=== PATIENT | female | born 1985 | race Caucasian/White ===

== ENCOUNTER 2016-05-26 23:16 | Emergency (ER) | payer OTHER ==
[2016-05-26 23:49] VITALS: RESP 16
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
[2016-05-27] MEDS ORDERED: KETOROLAC 60 MG/2 ML VIAL IM STA (01:36)
[2016-05-27] MEDS ORDERED: MORPHINE SULFATE 4 MG/ML SYRINGE IVP STA (02:00)
[2016-05-27 02:01] VITALS: BP 111/59; PULSE 88; TEMP 98.9
== END 2016-05-27 02:50 | disposition home or self-care (01) ==
LOC: EC 23:16
DX: S06.2X0A Diffuse traumatic brain injury without loss of consciousness, initial encounter (principal); S30.0XXA Contusion of lower back and pelvis, initial encounter; S00.12XA Contusion of left eyelid and periocular area, initial encounter; D16.12 Benign neoplasm of short bones of left upper limb; F17.200 Nicotine dependence, unspecified, uncomplicated; Y04.2XXA Assault by strike against or bumped into by another person, initial encounter; Z79.899 Other long term (current) drug therapy
CPT/HCPCS: 99284; 96374; 72100; 73110; 72125; 70486; 70450; J2270

== ENCOUNTER 2018-01-31 22:20 | Emergency (ER) | payer OTHER ==
[2018-01-31] MEDS ORDERED: ORPHENADRINE 30 MG/ML 2 ML VIAL IM STA (22:52)
[2018-01-31] MEDS ORDERED: KETOROLAC 60 MG/2 ML VIAL IM STA (22:52)
--- NOTE | 2018-01-31 23:36 | ED ---
Fall HPI - General Chief Complaint: Fall Stated Complaint: Back pain-tripped over dog Time Seen by Provider: 01/31/18 22:27 Source: patient, RN notes reviewed, old records reviewed Mode of arrival: ambulatory - History of Present Illness Initial Comments: Patient is a 33 year old female and she states that she was walking her dog this morning around 9 am when she tripped over the dog falling onto her back. Patient states that she had increased pain in her lower back throughout the day and has a hx of a spinal fusion. She denies UTI symptoms. She reports that she has worse pain with movement. She denies adominal pain. - Related Data Previous Rx's Medication Instructions Recorded Cyclobenzaprine [Flexeril] 10 mg PO TID #15 tab 02/01/18 Dexamethasone 0.75 mg PO DAILY #12 tab 02/01/18 Nitrofurantoin Monohyd/M-Cryst 100 mg PO Q12HR #14 cap 02/01/18 [Macrobid] traMADol HCl [Ultram] 50 mg PO Q4HR PRN 3 Days #12 tab 02/01/18 Allergies Allergy/AdvReac Type Severity Reaction Status Date / Time No Known Allergies Allergy Verified 01/31/18 22:41 Review of Systems ROS Statement: Those systems with pertinent positive or pertinent negative responses have been documented in the HPI. ROS Other: All systems not noted in ROS Statement are negative. Past Medical History Additional Past Medical History / Comment(s): endometriosis History of Any Multi-Drug Resistant Organisms: None Reported Past Surgical History: Back Surgery, Hysterectomy Additional Past Surgical History / Comment(s): spinal fusion Past Psychological History: Depression Smoking Status: Current every day smoker Past Alcohol Use History: None Reported Past Drug Use History: Marijuana General Exam - General Exam Comments Initial Comments: Well appearing 33 year old female, no significant distress. Limitations: no limitations General appearance: alert, in no apparent distress Head exam: Present: atraumatic, normocephalic, normal inspection Eye exam: Present: normal appearance, PERRL, EOMI. Absent: scleral icterus, conjunctival injection, periorbital swelling Neck exam: Present: normal inspection. Absent: tenderness, meningismus, lymphadenopathy Respiratory exam: Present: normal lung sounds bilaterally. Absent: respiratory distress, wheezes, rales, rhonchi, stridor Cardiovascular Exam: Present: regular rate, normal rhythm, normal heart sounds. Absent: systolic murmur, diastolic murmur, rubs, gallop, clicks GI/Abdominal exam: Present: soft, tenderness (Lumbar spinal and paraspinal tenderness, and spasm. ), normal bowel sounds. Absent: distended, guarding, rebound, rigid Extremities exam: Present: normal inspection, full ROM, normal capillary refill. Absent: tenderness, pedal edema, joint swelling, calf tenderness Back exam: Present: normal inspection Neurological exam: Present: alert, oriented X3, CN II-XII intact Psychiatric exam: Present: normal affect, normal mood Course Vital Signs 01/31/18 02/01/18 22:23 01:08 Temperature 97.9 F 98.1 F Pulse Rate 110 H 93 Respiratory 19 18 Rate Blood Pressure 153/92 106/59 O2 Sat by Pulse 100 98 Oximetry Medical Decision Making - Medical Decision Making 33 year old female with history of spinal fusino presents ith mechanical lowe back pain after a fall. She has normal sensation adn rOM of lower extremities. Normal cap refill. She has no significant deformities or step off to palpation of lumbar spine. Xray was completed and negatie for acute fracture. We did check uA, and she is nitrate positive. Will start on antibiotic for UTI. Given IM infection for pain. Will DC patient with rx of steriod, musle relaxer and pain medication for acute mechanical [place] back pain. Discussed close follow up with PCP and return parameters discussed . - Lab Data Lab Results 01/31/18 Range/Units 23:57 Urine Color Yellow Urine Appearance Cloudy H (Clear) Urine pH 5.5 (5.0-8.0) Ur Specific [place] 1.011 (1.001-1.035) Urine Protein Negative (Negative) Urine Glucose (UA) Negative (Negative) Urine Ketones Negative (Negative) Urine Blood Negative (Negative) Urine Nitrite Positive H (Negative) Urine Bilirubin Negative (Negative) Urine Urobilinogen <2.0 (<2.0) mg/dL Ur Leukocyte Esterase Small H (Negative) Urine RBC 2 (0-5) /hpf Urine WBC 8 H (0-5) /hpf Ur Squamous Epith Cells 4 (0-4) /hpf Urine Bacteria Many H (None) /hpf Urine Mucus Rare H (None) /hpf - Radiology Data Radiology results: report reviewed Previous surgery. No fracture. Mild low scoliosis. Disposition Clinical Impression: Lower back pain, UTI (urinary tract infection), Scoliosis Disposition: HOME SELF-CARE Condition: Good Additional Instructions: Patient has follow-up with primary care physician. He denies any back. Return to emergency department if any alarming signs or symptoms occur. Prescriptions: Cyclobenzaprine [Flexeril] 10 mg PO TID #15 tab Dexamethasone 0.75 mg PO DAILY #12 tab Nitrofurantoin Monohyd/M-Cryst [Macrobid] 100 mg PO Q12HR #14 cap traMADol HCl [Ultram] 50 mg PO Q4HR PRN 3 Days #12 tab PRN Reason: Pain Is patient prescribed a controlled substance at d/c from ED?: No Referrals: None,Stated [Primary Care Provider] - 1-2 days Leticia Harding MD [STAFF PHYSICIAN] - 1-2 days Ramiro Seaman DO [Doctor of Osteopathic Medicine] - 1-2 days Time of Disposition: 00:44
[2018-02-01] MEDS: Acetaminophen-Codeine 300-30mg TAB PO STA ×2 (00:02→00:05)
[2018-02-01] MEDS ORDERED: Acetaminophen-Codeine 300-30mg TAB PO STA (00:06)
--- NOTE | 2018-02-01 00:07 | XR ---
EXAMINATION TYPE: XR lumbar spine 2 or 3V DATE OF EXAM: 01/31/2018 COMPARISON: NONE HISTORY: Back pain TECHNIQUE: 3 views FINDINGS: There is mild levoscoliosis. There is a plate with screws fusing anteriorly L5 and S1. The sacroiliac joints are normal. There is no compression fracture. IMPRESSION: Previous surgery. No fracture. Stable mild levoscoliosis.
--- NOTE | 2018-02-01 00:08 | XR ---
EXAMINATION TYPE: XR thoracic spine 2V DATE OF EXAM: 01/31/2018 COMPARISON: NONE HISTORY: Back pain TECHNIQUE: 3 views FINDINGS: There is a lower thoracic dextroscoliosis and compensatory upper thoracic levoscoliosis. Th ere is no paraspinal mass. Posterior elements are intact. I see no compression fracture. There is no evidence of a bony destructive process. IMPRESSION: Mild scoliotic deformity. No fracture seen.
[2018-02-01 00:33] LABS: Appearance,Urine Cloudy (Clear); Bacteria,Urine Many /hpf; Bilirubin,Urine Negative (Negative); Blood,Urine Negative (Negative); Color,Urine Yellow; Glucose,Urine (UA) Negative (Negative); Ketones,Urine Negative (Negative); Leukocyte Esterase,Urine Small (Negative); Mucus,Urine Rare /hpf; Nitrite,Urine Positive (Negative); PH, Urine 5.5 (5.0-8.0); Protein,Urine Negative (Negative); RBC,Urine 2 /hpf (0-5); Specific Gravity,Urine 1.011 (1.001-1.035); Squamous Epithelial Cell,Urine 4 /hpf (0-4); Urobilinogen,Urine <2.0 mg/dL (<2.0); WBC,Urine 8 /hpf (0-5)
[2018-02-01 01:10] VITALS: BP 106/59; PULSE 93; RESP 18; TEMP 98.1
== END 2018-02-01 01:08 | disposition home or self-care (01) ==
LOC: EC 22:20
DX: M54.5 Low back pain (principal); N39.0 Urinary tract infection, site not specified; M41.9 Scoliosis, unspecified; F17.200 Nicotine dependence, unspecified, uncomplicated; Z98.890 Other specified postprocedural states; Z98.1 Arthrodesis status; Z53.8 Procedure and treatment not carried out for other reasons; W01.0XXA Fall on same level from slipping, tripping and stumbling without subsequent striking against object, initial encounter; Y93.K1 Activity, walking an animal; Y92.89 Other specified places as the place of occurrence of the external cause
CPT/HCPCS: 81001; 72070; 72100; 99284; 96372 ×2; J2360; J1885

== ENCOUNTER 2018-07-25 12:00 | Emergency (ER) | payer OTHER ==
[2018-07-25 12:05] VITALS: BP 157/82; PULSE 100; RESP 20; TEMP 98.3
--- NOTE | 2018-07-25 12:29 | ED ---
General Adult HPI - General Chief complaint: Recheck/Abnormal Lab/Rx Stated complaint: Swollen lymph node Time Seen by Provider: 07/25/18 12:12 Source: patient, RN notes reviewed, old records reviewed Mode of arrival: ambulatory Limitations: no limitations - History of Present Illness Initial comments: This is a 33-year-old female who presents to the emergency department with complaints of left-sided postauricular swelling and pain. Patient admits to having an enlarged lymph node present in the region for the past 2 years. The lymph node will fluctuate in size. Once enlarged it causes the patient a significant amount of pain. States that she previously saw her primary care physician and had blood work completed. They referred her to an ENT doctor. She did not have any imaging performed and she never followed up. For the past 2 days, the lymph node has tripled in size. She has also felt additional palpable lymph nodes in the same area as well as in her anterior cervical region. She normally takes Motrin at home for pain and states she has been taking this with minimal improvement in her symptoms. She admits to left-sided neck pain with palpation. Denies any history of trauma. She denies any recent illnesses. Denies sore throat, ear pain, headaches, neck stiffness, fevers, or nasal drainage. She denies any night sweats, unintentional weight loss, or extreme fatigue. No personal history of cancer. She denies any oral pain or swelling. She has any chest pain or difficulty breathing. No reported nausea or vomiting. - Related Data Home Medications Medication Instructions Recorded Confirmed Black Cohosh 540 mg PO DAILY 07/25/18 07/25/18 Bronkaide 1 tab PO DAILY PRN 07/25/18 07/25/18 Ibuprofen [Motrin Ib] 1,200 - 2,400 mg PO DAILY PRN 07/25/18 07/25/18 Multivitamins, Thera [Multivitamin 1 tab PO DAILY 07/25/18 07/25/18 (formulary)] Junaid's Wort 150 mg PO DAILY 07/25/18 07/25/18 Allergies Allergy/AdvReac Type Severity Reaction Status Date / Time No Known Allergies Allergy Verified 07/25/18 12:10 Patient : No (hyster) Review of Systems ROS Statement: Those systems with pertinent positive or pertinent negative responses have been documented in the HPI. ROS Other: All systems not noted in ROS Statement are negative. Past Medical History Additional Past Medical History / Comment(s): endometriosis History of Any Multi-Drug Resistant Organisms: None Reported Past Surgical History: Back Surgery, Hysterectomy Additional Past Surgical History / Comment(s): spinal fusion Past Psychological History: Depression Smoking Status: Current every day smoker Past Alcohol Use History: None Reported Past Drug Use History: None Reported General Exam Limitations: no limitations General appearance: alert, in no apparent distress Head exam: Present: atraumatic, normocephalic, other (Located posterior to the patient's left ear are 2 palpable nodules that measure approximately 1.0 and 1.5 cm. They are freely mobile and rubbery to palpation. No areas of fluctuance. The overlying skin is not erythematous or puckered. Negative Bearden sign. No tenderness to palpation of the mastoids) Expanded Head exam: Absent: contusion, raccoon eyes, bearden's sign, general tenderness, tenderness of temporal artery, CSF rhinorrhea, CSF otorrhea Eye exam: Present: normal appearance, PERRL, EOMI Pupils: Present: normal accommodation ENT exam: Present: normal exam, normal oropharynx, mucous membranes moist, TM's normal bilaterally, normal external ear exam Neck exam: Present: full ROM, lymphadenopathy, other (There are multiple palpable anterior cervical lymph nodes predominantly on the left that measure less than 1 cm each. No enlargement of the salivary glands.). Absent: tenderness, meningismus, thyromegaly Respiratory exam: Present: normal lung sounds bilaterally. Absent: respiratory distress, wheezes, rales, rhonchi Cardiovascular Exam: Present: regular rate, normal rhythm Neurological exam: Present: alert, oriented X3 Skin exam: Present: warm, dry, intact, normal color. Absent: rash, erythema, vesicles, petechiae, pallor Course Vital Signs 07/25/18 07/25/18 12:02 14:28 Temperature 98.3 F 98.3 F Pulse Rate 100 100 Respiratory 20 20 Rate Blood Pressure 157/82 157/82 O2 Sat by Pulse 100 100 Oximetry Procedures - Procedures Initial comment: Bedside soft tissue ultrasound is performed. The linear probe was utilized and placed over the area of concern in the postauricular area. Imaging reveals 2 enlarged masses/lymph nodes without signs of fluid collection Medical Decision Making - Medical Decision Making The patient was seen by myself in room 16. Physical exam was performed. I did perform a bedside ultrasound of patient's postauricular area which demonstrated two enlarged masses/possible enlarged lymph nodes. There are no cellulitic changes or signs concerning for abscess formation. I did offer laboratory studies as well as a CT of the patient's neck. The patient did agree to laboratory studies however however refused CT imaging. Laboratory studies were performed. The patient was offered Toradol 30 mg IM for pain control. Patient did agree to this. Upon reevaluation by the nurse the patient admits that she is having back pain from sitting in the examination cart and she would like to leave. I did obtain the patient's results and enter the room to provide them to the patient however she had eloped immediately after speaking to the nurse. - Differential Diagnosis Lymphadenopathy, abscess formation, cyst formation - Lab Data Result diagrams: 07/25/18 13:17 07/25/18 13:17 Lab Results 07/25/18 07/25/18 Range/Units 13:17 13:17 WBC 7.9 (3.8-10.6) k/uL RBC 3.76 L (3.80-5.40) m/uL Hgb 11.1 L (11.4-16.0) gm/dL Hct 34.7 (34.0-46.0) % MCV 92.4 (80.0-100.0) fL MCH 29.6 (25.0-35.0) pg MCHC 32.1 (31.0-37.0) g/dL RDW 14.8 (11.5-15.5) % Plt Count 185 (150-450) k/uL Neutrophils % 63 % Lymphocytes % 27 % Monocytes % 5 % Eosinophils % 3 % Basophils % 1 % Neutrophils # 4.9 (1.3-7.7) k/uL Lymphocytes # 2.1 (1.0-4.8) k/uL Monocytes # 0.4 (0-1.0) k/uL Eosinophils # 0.3 (0-0.7) k/uL Basophils # 0.0 (0-0.2) k/uL Sodium 139 (137-145) mmol/L Potassium 4.4 (3.5-5.1) mmol/L Chloride 109 H (98-107) mmol/L Carbon Dioxide 23 (22-30) mmol/L Anion Gap 7 mmol/L BUN 22 H (7-17) mg/dL Creatinine 0.64 (0.52-1.04) mg/dL Est GFR (CKD-EPI)AfAm >90 (>60 ml/min/1.73 sqM) Est GFR (CKD-EPI)NonAf >90 (>60 ml/min/1.73 sqM) Glucose 88 (74-99) mg/dL Calcium 8.9 (8.4-10.2) mg/dL C-Reactive Protein <5.0 (<10.0) mg/L Disposition Clinical Impression: Lymphadenopathy of head and neck region, Lymph node enlargement Narrative: The patient eloped from the emergency department without being discharged by myself Disposition: Left Against Medical Advice Condition: Good Is patient prescribed a controlled substance at d/c from ED?: No Referrals: None,Stated [Primary Care Provider] - 1-2 days Time of Disposition: 02:30
[2018-07-25] MEDS ORDERED: KETOROLAC 60 MG/2 ML VIAL IM STA (12:52)
[2018-07-25 13:41] LABS: Anion Gap 7 mmol/L; Blood Urea Nitrogen 22 mg/dL (7-17); C Reactive Protein <5.0 mg/L (<10.0); Calcium 8.9 mg/dL (8.4-10.2); Carbon Dioxide 23 mmol/L (22-30); Chloride 109 mmol/L (98-107); Glucose 88 mg/dL (74-99); Potassium 4.4 mmol/L (3.5-5.1); Sodium 139 mmol/L (137-145)
[2018-07-25 13:45] LABS: Basophils % (A) 1 %; Eosinophils # (A) 0.3 k/uL (0-0.7); Eosinophils % (A) 3 %; HCT 34.7 % (34.0-46.0); HGB 11.1 gm/dL (11.4-16.0); Lymphocytes # (A) 2.1 k/uL (1.0-4.8); Lymphocytes % (A) 27 %; MCH 29.6 pg (25.0-35.0); MCHC 32.1 g/dL (31.0-37.0); MCV 92.4 fL (80.0-100.0); Mean Platelet Volume 9.1; Monocytes # (A) 0.4 k/uL (0-1.0); Monocytes % (A) 5 %; Neutrophils # (A) 4.9 k/uL (1.3-7.7); Neutrophils % (A) 63 %; Platelet Count 185 k/uL (150-450); RBC 3.76 m/uL (3.80-5.40); RDW 14.8 % (11.5-15.5); WBC 7.9 k/uL (3.8-10.6)
[2018-07-25 15:12] LABS: Erythrocyte Sedimentation Rate 8 mm/hr (0-20)
== END 2018-07-25 14:28 | disposition left against medical advice (07) ==
LOC: EC 12:00
DX: R59.0 Localized enlarged lymph nodes (principal); F17.200 Nicotine dependence, unspecified, uncomplicated; Z79.899 Other long term (current) drug therapy
CPT/HCPCS: 36415; 80048; 85025; 85652; 86140; 96372; 99284

== ENCOUNTER 2021-11-25 07:10 | Inpatient (IN) | payer OTHER ==
[2021-11-25] MEDS ORDERED: SODIUM CHLORIDE 0.9% 1,000 ML IV STA (07:21)
[2021-11-25] MEDS ORDERED: diphenhydrAMINE 50 MG/ML 1 ML VIAL IVP STA (07:22)
[2021-11-25] MEDS ORDERED: ONDANSETRON 4 MG/2 ML VIAL IVP STA (07:22)
[2021-11-25] MEDS ORDERED: KETOROLAC 15 MG/ML 1 ML VIAL IVP STA (07:22)
--- NOTE | 2021-11-25 07:29 | ED ---
General Adult HPI - General Chief complaint: Syncope Stated complaint: syncope Time Seen by Provider: 11/25/21 07:12 Source: patient, EMS, RN notes reviewed, old records reviewed Mode of arrival: EMS Limitations: no limitations - History of Present Illness Initial comments: Patient is a 36-year-old female with past medical history remarkable for chronic cough secondary to tobacco use, back surgery presents to the emergency Department after a near-syncopal episode while at work. This is the second time this week that she has felt like this at work. She states that 2 days ago she felt lightheaded at that time, and sat down. Today she felt the same way, and laying down on the ground. Coworkers thought she passed out but she states that she could still hear and see, but felt extremely weak. They called EMS and was brought here for further evaluation today. Does endorse a 2-3 month history of intermittent right calf swelling which is currently happening today. Denies any shortness of breath, chest pain. Does endorse some nausea but no emesis. Denies diarrhea. Denies any bloody bowel movements. Denies being . Denies any urinary complaints or vaginal discharge or bleeding. Denies any known sick contacts or fevers. Has no other acute complaints at this time. Denies any family medical history of blood clots. Endorses feeling medical history of heart disease in elderly but no early onset.Denies headache. Describes her abdominal pain that she is having as achy located in the right upper quadrant and epigastric region. - Related Data Home Medications Medication Instructions Recorded Confirmed Ibuprofen [Motrin Ib] 800 mg PO DAILY PRN 07/25/18 11/25/21 Multivitamins, Thera [Multivitamin 1 tab PO DAILY 07/25/18 11/25/21 (formulary)] Acetaminophen [Tylenol] 650 mg PO Q6H PRN 11/25/21 11/25/21 Allergies Allergy/AdvReac Type Severity Reaction Status Date / Time No Known Allergies Allergy Verified 11/25/21 08:39 Review of Systems ROS Statement: Those systems with pertinent positive or pertinent negative responses have been documented in the HPI. Review of Systems: CONST: Denies fever EYES: Denies blurry vision ENT: Denies nasal congestion C/V: Denies Chest pain RESP: Denies shortness of breath GI: Endorses abdominal pain. : Denies dysuria SKIN: Denies rash. MSK: Denies joint pain. NEURO: Denies headache ROS Other: All systems not noted in ROS Statement are negative. Past Medical History Additional Past Medical History / Comment(s): endometriosis History of Any Multi-Drug Resistant Organisms: None Reported Past Surgical History: Back Surgery, Hysterectomy Additional Past Surgical History / Comment(s): spinal fusion Past Psychological History: Depression Smoking Status: Current every day smoker Past Alcohol Use History: None Reported Past Drug Use History: None Reported - Past Family History Father Family Medical History: No Reported History Additional Family Medical History / Comment(s): Father is healthy Mother Additional Family Medical History / Comment(s): Endometriosis General Exam - General Exam Comments Initial Comments: General: Appears in no acute distress. HEAD: Normal with no signs of head trauma. EYES: PERRLA, EOMI, conjunctiva normal, no discharge. Pupils are 3 mm and equal bilaterally. ENT: Hearing grossly intact, normal oropharynx. RESPIRATORY: Clear breath sounds bilaterally. No wheezes, rales, or rhonchi. C/V: Regular rate and rhythm. S1 and S2 auscultated, no edema, peripheral pulse s 2+ and intact throughout ABD: Abdomen soft, nondistended. Mild tenderness to palpation in the right upper quadrant and somewhat in the epigastric region. No guarding. No peritoneal signs. No rebound tenderness. EXT: Normal range of motion, no obvious deformity.Mild calf swelling on the right side with no obvious tenderness or pitting edema. SKIN: No rashes or lesions observed on exposed skin. NEURO: Alert and oriented x 4. Cranial nerves II-XII intact. No focal sensory or strength deficits. NIH is 0. GCS 15. Limitations: no limitations Course Vital Signs 11/25/21 11/25/21 11/25/21 07:15 08:00 09:00 Temperature 97.9 F 97.9 F Pulse Rate 81 73 69 Respiratory 18 20 18 Rate Blood Pressure 117/77 105/71 116/71 O2 Sat by Pulse 100 100 99 Oximetry 11/25/21 11/25/21 11/25/21 10:00 12:04 12:15 Temperature 98.9 F 98.8 F Pulse Rate 79 70 70 Respiratory 19 18 16 Rate Blood Pressure 123/67 102/60 112/65 O2 Sat by Pulse 99 100 100 Oximetry 11/25/21 12:45 Temperature 98.4 F Pulse Rate 73 Respiratory 17 Rate Blood Pressure 114/76 O2 Sat by Pulse 100 Oximetry Medical Decision Making - Medical Decision Making Based on the patient's presentation and physical exam, I'm concerned for what seems to be near syncopal episode at work. She also having nausea as well as abdominal pain. We will obtain right upper quadrant ultrasound condition to a right lower extremity duplex treatment swelling in the calf. No skin the patient with an EKG as well as d-dimer in addition to basic labs, urine studies, hCG level. Patient was in agreement with this plan. She'll be symptomatically treated with IV medications and IV fluids. Vital signs are within normal limits at this time. EKG shows no signs of acute ischemia. Gallbladder ultrasound reveals no significant findings. DVT ultrasound of the right lower extremity is negative for DVT. Laboratory studies were remarkable for a microcytic anemia with hemoglobin of 6.0. D-dimer is within normal limits. Urinalysis is a contaminated catch but does show nitrites as well as leukocyte esterase. Culture will be sent. In a box will be held at this time and she is having no urinary symptoms. Covid is negative. Flu is negative. Repeat CBC was sent as the lab was uncertain if it was accurate. Repeat following IV fluids did show a small drop in hemoglobin to 5.6. This is likely secondary to dilutional effect. I discussed with the patient results of her laboratory studies and imaging. I'm concerned for GI bleed and I once again as ked regarding bleeding from her bowels. She states over the last 2-3 weeks she has had a few episodes of intermittent bright red blood per rectum. Denies any dark stools or dark red stools. States she felt was secondary to her constipation. Uncertain when last time this happened. Had a few episodes where there was a lot of blood, but no recent episodes. No history of enteritis. No other significant history. No lower quadrant abdominal pain at any point. I discussed with her her results, and that she requires blood transfusion. Patient will be admitted to the hospital in need of likely colonoscopy. She was in agreement this plan. Rectal exam was performed in the presence of a female staff member. It is unremarkable. No gross blood. Light brown stool. Good rectal tone. Occult blood is negative. At this time vital signs remained within normal limits and stable. I discussed the case with the on-call surgeon as we do not have gastroenterology here. Dr. Schultz did accept the case and requested the patient be admitted to medicine and will be on as a consult for GI bleed workup. I spoke with the patient's admitting physician, Dr. Soto who was in agreement this plan. Veronica cruz was therefore admitted in stable condition. Serial CBCs were ordered. Initially, patient will be transfused 2 units of packed red blood cells. - Lab Data Result diagrams: 11/25/21 08:48 11/25/21 07:30 Lab Results 11/25/21 11/25/21 11/25/21 Range/Units 07:30 07:30 07:30 WBC 5.6 (3.8-10.6) k/uL RBC 3.78 L (3.80-5.40) m/uL Hgb 6.0 L* (11.4-16.0) gm/dL Hct 23.8 L (34.0-46.0) % MCV 63.1 L (80.0-100.0) fL MCH 15.9 L (25.0-35.0) pg MCHC 25.2 L (31.0-37.0) g/dL RDW 17.5 H (11.5-15.5) % Plt Count 264 (150-450) k/uL MPV 8.7 Neutrophils % 73 % Lymphocytes % 16 % Monocytes % 7 % Eosinophils % 2 % Basophils % 2 % Neutrophils # 4.1 (1.3-7.7) k/uL Lymphocytes # 0.9 L (1.0-4.8) k/uL Monocytes # 0.4 (0-1.0) k/uL Eosinophils # 0.1 (0-0.7) k/uL Basophils # 0.1 (0-0.2) k/uL Hypochromasia Marked Anisocytosis Slight Microcytosis Marked PT 10.1 (9.0-12.0) sec INR 0.9 (<1.2) APTT 18.2 L (22.0-30.0) sec D-Dimer 0.56 (<0.60) mg/L FEU Sodium (137-145) mmol/L Potassium (3.5-5.1) mmol/L Chloride (98-107) mmol/L Carbon Dioxide (22-30) mmol/L Anion Gap mmol/L BUN (7-17) mg/dL Creatinine (0.52-1.04) mg/dL Est GFR (CKD-EPI)AfAm (>60 ml/min/1.73 sqM) Est GFR (CKD-EPI)NonAf (>60 ml/min/1.73 sqM) Glucose (74-99) mg/dL POC Glucose (mg/dL) (70-110) mg/dL POC Glu Canine Service Instructor Trainer ID Calcium (8.4-10.2) mg/dL Magnesium (1.6-2.3) mg/dL Total Bilirubin (0.2-1.3) mg/dL AST (14-36) U/L ALT (4-34) U/L Alkaline Phosphatase (38-126) U/L Total Protein (6.3-8.2) g/dL Albumin (3.5-5.0) g/dL HCG, Qual Urine Color Yellow Urine Appearance Cloudy H (Clear) Urine pH 6.0 (5.0-8.0) Ur Specific [place] 1.040 H (1.001-1.035) Urine Protein 1+ H (Negative) Urine Glucose (UA) Negative (Negative) Urine Ketones Negative (Negative) Urine Blood Negative (Negative) Urine Nitrite Positive H (Negative) Urine Bilirubin Negative (Negative) Urine Urobilinogen <2.0 (<2.0) mg/dL Ur Leukocyte Esterase Moderate H (Negative) Urine RBC 2 (0-5) /hpf Urine WBC 12 H (0-5) /hpf Ur Squamous Epith Cells 20 H (0-4) /hpf Urine Bacteria Rare H (None) /hpf Hyaline Casts 7 H (0-2) /lpf Urine Mucus Occasional H (None) /hpf Stool Occult Blood (Negative) Coronavirus (PCR) (Not Detectd) Influenza Type A RNA (Not Detectd) Influenza Type B (PCR) (Not Detectd) Blood Type Blood Type Recheck Bld Type Recheck Status Antibody Screen Crossmatch Spec Expiration Date 11/25/21 11/25/21 11/25/21 Range/Units 07:30 07:30 07:30 WBC (3.8-10.6) k/uL RBC (3.80-5.40) m/uL Hgb (11.4-16.0) gm/dL Hct (34.0-46.0) % MCV (80.0-100.0) fL MCH (25.0-35.0) pg MCHC (31.0-37.0) g/dL RDW (11.5-15.5) % Plt Count (150-450) k/uL MPV Neutrophils % % Lymphocytes % % Monocytes % % Eosinophils % % Basophils % % Neutrophils # (1.3-7.7) k/uL Lymphocytes # (1.0-4.8) k/uL Monocytes # (0-1.0) k/uL Eosinophils # (0-0.7) k/uL Basophils # (0-0.2) k/uL Hypochromasia Anisocytosis Microcytosis PT (9.0-12.0) sec INR (<1.2) APTT (22.0-30.0) sec D-Dimer (<0.60) mg/L FEU Sodium 139 (137-145) mmol/L Potassium 4.3 (3.5-5.1) mmol/L Chloride 106 (98-107) mmol/L Carbon Dioxide 22 (22-30) mmol/L Anion Gap 11 mmol/L BUN 21 H (7-17) mg/dL Creatinine 0.79 (0.52-1.04) mg/dL Est GFR (CKD-EPI)AfAm >90 (>60 ml/min/1.73 sqM) Est GFR (CKD-EPI)NonAf >90 (>60 ml/min/1.73 sqM) Glucose 93 (74-99) mg/dL POC Glucose (mg/dL) (70-110) mg/dL POC Glu Canine Service Instructor Trainer ID Calcium 8.9 (8.4-10.2) mg/dL Magnesium 1.9 (1.6-2.3) mg/dL Total Bilirubin 0.2 (0.2-1.3) mg/dL AST 17 (14-36) U/L ALT 11 (4-34) U/L Alkaline Phosphatase 58 (38-126) U/L Total Protein 7.3 (6.3-8.2) g/dL Albumin 4.6 (3.5-5.0) g/dL HCG, Qual Not Detected Urine Color Urine Appearance (Clear) Urine pH (5.0-8.0) Ur Specific [place] (1.001-1.035) Urine Protein (Negative) Urine Glucose (UA) (Negative) Urine Ketones (Negative) Urine Blood (Negative) Urine Nitrite (Negative) Urine Bilirubin (Negative) Urine Urobilinogen (<2.0) mg/dL Ur Leukocyte Esterase (Negative) Urine RBC (0-5) /hpf Urine WBC (0-5) /hpf Ur Squamous Epith Cells (0-4) /hpf Urine Bacteria (None) /hpf Hyaline Casts (0-2) /lpf Urine Mucus (None) /hpf Stool Occult Blood (Negative) Coronavirus (PCR) Not Detected (Not Detectd) Influenza Type A RNA Not Detected (Not Detectd) Influenza Type B (PCR) Not Detected (Not Detectd) Blood Type Blood Type Recheck Bld Type Recheck Status Antibody Screen Crossmatch Spec Expiration Date 11/25/21 11/25/21 11/25/21 Range/Units 07:47 08:48 09:37 WBC 6.6 (3.8-10.6) k/uL RBC 3.40 L (3.80-5.40) m/uL Hgb 5.6 L* (11.4-16.0) gm/dL Hct 21.7 L (34.0-46.0) % MCV 63.9 L (80.0-100.0) fL MCH 16.4 L (25.0-35.0) pg MCHC 25.7 L (31.0-37.0) g/dL RDW 17.6 H (11.5-15.5) % Plt Count 240 (150-450) k/uL MPV 9.6 Neutrophils % % Lymphocytes % % Monocytes % % Eosinophils % % Basophils % % Neutrophils # (1.3-7.7) k/uL Lymphocytes # (1.0-4.8) k/uL Monocytes # (0-1.0) k/uL Eosinophils # (0-0.7) k/uL Basophils # (0-0.2) k/uL Hypochromasia Marked Anisocytosis Slight Microcytosis Marked PT (9.0-12.0) sec INR (<1.2) APTT (22.0-30.0) sec D-Dimer (<0.60) mg/L FEU Sodium (137-145) mmol/L Potassium (3.5-5.1) mmol/L Chloride (98-107) mmol/L Carbon Dioxide (22-30) mmol/L Anion Gap mmol/L BUN (7-17) mg/dL Creatinine (0.52-1.04) mg/dL Est GFR (CKD-EPI)AfAm (>60 ml/min/1.73 sqM) Est GFR (CKD-EPI)NonAf (>60 ml/min/1.73 sqM) Glucose (74-99) mg/dL POC Glucose (mg/dL) 100 (70-110) mg/dL POC Glu Canine Service Instructor Trainer ID Skyla Flores Calcium (8.4-10.2) mg/dL Magnesium (1.6-2.3) mg/dL Total Bilirubin (0.2-1.3) mg/dL AST (14-36) U/L ALT (4-34) U/L Alkaline Phosphatase (38-126) U/L Total Protein (6.3-8.2) g/dL Albumin (3.5-5.0) g/dL HCG, Qual Urine Color Urine Appearance (Clear) Urine pH (5.0-8.0) Ur Specific [place] (1.001-1.035) Urine Protein (Negative) Urine Glucose (UA) (Negative) Urine Ketones (Negative) Urine Blood (Negative) Urine Nitrite (Negative) Urine Bilirubin (Negative) Urine Urobilinogen (<2.0) mg/dL Ur Leukocyte Esterase (Negative) Urine RBC (0-5) /hpf Urine WBC (0-5) /hpf Ur Squamous Epith Cells (0-4) /hpf Urine Bacteria (None) /hpf Hyaline Casts (0-2) /lpf Urine Mucus (None) /hpf Stool Occult Blood (Negative) Coronavirus (PCR) (Not Detectd) Influenza Type A RNA (Not Detectd) Influenza Type B (PCR) (Not Detectd) Blood Type O Positive Blood Type Recheck O Pos Bld Type Recheck Status No Antibody Screen NEGATIVE Crossmatch See Detail Spec Expiration Date 11/28/2021233611/25/21 Range/Units 09:37 WBC (3.8-10.6) k/uL RBC (3.80-5.40) m/uL Hgb (11.4-16.0) gm/dL Hct (34.0-46.0) % MCV (80.0-100.0) fL MCH (25.0-35.0) pg MCHC (31.0-37.0) g/dL RDW (11.5-15.5) % Plt Count (150-450) k/uL MPV Neutrophils % % Lymphocytes % % Monocytes % % Eosinophils % % Basophils % % Neutrophils # (1.3-7.7) k/uL Lymphocytes # (1.0-4.8) k/uL Monocytes # (0-1.0) k/uL Eosinophils # (0-0.7) k/uL Basophils # (0-0.2) k/uL Hypochromasia Anisocytosis Microcytosis PT (9.0-12.0) sec INR (<1.2) APTT (22.0-30.0) sec D-Dimer (<0.60) mg/L FEU Sodium (137-145) mmol/L Potassium (3.5-5.1) mmol/L Chloride (98-107) mmol/L Carbon Dioxide (22-30) mmol/L Anion Gap mmol/L BUN (7-17) mg/dL Creatinine (0.52-1.04) mg/dL Est GFR (CKD-EPI)AfAm (>60 ml/min/1.73 sqM) Est GFR (CKD-EPI)NonAf (>60 ml/min/1.73 sqM) Glucose (74-99) mg/dL POC Glucose (mg/dL) (70-110) mg/dL POC Glu Canine Service Instructor Trainer ID Calcium (8.4-10.2) mg/dL Magnesium (1.6-2.3) mg/dL Total Bilirubin (0.2-1.3) mg/dL AST (14-36) U/L ALT (4-34) U/L Alkaline Phosphatase (38-126) U/L Total Protein (6.3-8.2) g/dL Albumin (3.5-5.0) g/dL HCG, Qual Urine Color Urine Appearance (Clear) Urine pH (5.0-8.0) Ur Specific [place] (1.001-1.035) Urine Protein (Negative) Urine Glucose (UA) (Negative) Urine Ketones (Negative) Urine Blood (Negative) Urine Nitrite (Negative) Urine Bilirubin (Negative) Urine Urobilinogen (<2.0) mg/dL Ur Leukocyte Esterase (Negative) Urine RBC (0-5) /hpf Urine WBC (0-5) /hpf Ur Squamous Epith Cells (0-4) /hpf Urine Bacteria (None) /hpf Hyaline Casts (0-2) /lpf Urine Mucus (None) /hpf Stool Occult Blood Negative (Negative) Coronavirus (PCR) (Not Detectd) Influenza Type A RNA (Not Detectd) Influenza Type B (PCR) (Not Detectd) Blood Type Blood Type Recheck Bld Type Recheck Status Antibody Screen Crossmatch Spec Expiration Date - EKG Data -: EKG Interpreted by Me EKG Comments: 12-lead Electrocardiogram Interpretation Note EKG was reviewed and interpreted by myself. 12-lead ECG performed at 0724 is interpreted by me as revealing normal sinus rhythm at a rate of 73 beats per minute. [place] is normal. [place] interval is 212 ms. QRS duration is 89 ms. QTC is 429 ms. There is isolated T-wave inversion in lead V2.. There were no ST or T wave abnormalities to suggest myocardial ischemia or injury. R wave progression across the precordium was satisfactory. By my interpretation this EKG is non-diagnostic for acute ischemia. It does show findings for borderline first- degree AV block. Disposition Clinical Impression: Near syncope, Hematochezia, GI bleed, Symptomatic anemia Disposition: ADMITTED IP TO THIS HOSP Condition: Stable Time of Disposition: 09:20
[2021-11-25 07:50] LABS: Glucose,Whole Blood 100 mg/dL (70-110)
[2021-11-25 08:14] LABS: HCG,Qualitative Serum Not Detected
[2021-11-25 08:19] LABS: ALT 11 U/L (4-34); AST 17 U/L (14-36); African American GFR (CKD) >90 (>60 ml/min/1.73 sqM); Albumin 4.6 g/dL (3.5-5.0); Alkaline Phosphatase 58 U/L (38-126); Anion Gap 11 mmol/L; Blood Urea Nitrogen 21 mg/dL (7-17); Calcium 8.9 mg/dL (8.4-10.2); Carbon Dioxide 22 mmol/L (22-30); Chloride 106 mmol/L (98-107); Glucose 93 mg/dL (74-99); Magnesium 1.9 mg/dL (1.6-2.3); Non-African American GFR(CKD) >90 (>60 ml/min/1.73 sqM); Potassium 4.3 mmol/L (3.5-5.1); Sodium 139 mmol/L (137-145); Total Bilirubin 0.2 mg/dL (0.2-1.3); Total Protein 7.3 g/dL (6.3-8.2)
--- NOTE | 2021-11-25 08:21 | XR ---
EXAMINATION TYPE: XR chest 2V DATE OF EXAM: 11/25/2021 COMPARISON: Chest x-ray 07/21/2015 HISTORY: Syncope TECHNIQUE: Frontal and lateral views of the chest are obtained. FINDINGS: There is no focal air space opacity, pleural effusion, or pneumothorax seen. The cardiac silhouette size is within normal limits. The osseous structures are intact, scoliotic curvature of the thoracic lumbar spine is again seen, there are overlying leads and the patient is rotated. IMPRESSION: No acute cardiopulmonary process.
[2021-11-25 08:27] LABS: Appearance,Urine Cloudy (Clear); Bacteria,Urine Rare /hpf; Bilirubin,Urine Negative (Negative); Blood,Urine Negative (Negative); Color,Urine Yellow; Glucose,Urine (UA) Negative (Negative); Hyaline Casts,Urine 7 /lpf (0-2); Ketones,Urine Negative (Negative); Leukocyte Esterase,Urine Moderate (Negative); Mucus,Urine Occasional /hpf; Nitrite,Urine Positive (Negative); Protein,Urine 1+ (Negative); RBC,Urine 2 /hpf (0-5); Squamous Epithelial Cell,Urine 20 /hpf (0-4); Urobilinogen,Urine <2.0 mg/dL (<2.0); WBC,Urine 12 /hpf (0-5)
[2021-11-25 08:30] LABS: INR 0.9 (<1.2); Prothrombin Time 10.1 sec (9.0-12.0)
[2021-11-25 08:35] LABS: Partial Thromboplastin Time 18.2 sec (22.0-30.0)
[2021-11-25 08:41] LABS: Anisocytosis Slight; Basophils # (A) 0.1 k/uL (0-0.2); Basophils % (A) 2 %; Eosinophils # (A) 0.1 k/uL (0-0.7); Eosinophils % (A) 2 %; HCT 23.8 % (34.0-46.0); Hypochromasia Marked; Lymphocytes # (A) 0.9 k/uL (1.0-4.8); Lymphocytes % (A) 16 %; MCH 15.9 pg (25.0-35.0); MCHC 25.2 g/dL (31.0-37.0); MCV 63.1 fL (80.0-100.0); Mean Platelet Volume 8.7; Microcytosis Marked; Monocytes # (A) 0.4 k/uL (0-1.0); Monocytes % (A) 7 %; Neutrophils # (A) 4.1 k/uL (1.3-7.7); Neutrophils % (A) 73 %; Platelet Count 264 k/uL (150-450); RBC 3.78 m/uL (3.80-5.40); RDW 17.5 % (11.5-15.5); WBC 5.6 k/uL (3.8-10.6)
[2021-11-25 09:14] LABS: Anisocytosis Slight; HCT 21.7 % (34.0-46.0); Hypochromasia Marked; MCH 16.4 pg (25.0-35.0); MCHC 25.7 g/dL (31.0-37.0); MCV 63.9 fL (80.0-100.0); Mean Platelet Volume 9.6; Microcytosis Marked; Platelet Count 240 k/uL (150-450); RDW 17.6 % (11.5-15.5); WBC 6.6 k/uL (3.8-10.6)
[2021-11-25 09:18] LABS: HGB 5.6 gm/dL (11.4-16.0)
[2021-11-25] MEDS ORDERED: NALOXONE 0.4 MG/ML 1 ML VIAL IV PRN (09:35)
[2021-11-25] MEDS ORDERED: ONDANSETRON 4 MG/2 ML VIAL IVP PRN (09:35)
[2021-11-25] MEDS ORDERED: PANTOPRAZOLE 40 MG/10 ML VIAL IVP SCH (09:45)
--- NOTE | 2021-11-25 09:51 | US ---
EXAMINATION TYPE: US gallbladder DATE OF EXAM: 11/25/2021 COMPARISON: Ultrasound dated 05/09/2014 CLINICAL HISTORY: RUQ abd discomfort. EXAM MEASUREMENTS: Liver Length: 17.1 cm Gallbladder Wall: 0.3 cm CBD: 0.7 cm Right Kidney: 12.2 x 4.3 x 6.2 cm Pancreas: Tail obscured by overlying bowel gas Liver: upper limits of normal in size, unable to visualized dome Gallbladder: Not distended, no evident stone, there may be partial contraction, gallbladder wall is within normal limits, HIDA scan may be of benefit Evidence for sonographic Fernandez's sign: no CBD: dilated Right Kidney: measures large IMPRESSION: Common bile duct is underlying dilated similar to prior exam dated 2013. There are some l imitations the exam.
--- NOTE | 2021-11-25 09:53 | US ---
EXAMINATION TYPE: US venous doppler duplex LE RT DATE OF EXAM: 11/25/2021 7:23 AM COMPARISON: NONE CLINICAL HISTORY: calf swelling. SIDE PERFORMED: Right TECHNIQUE: The lower extremity deep venous system is examined utilizing real time linear array sonog tracie with graded compression, doppler sonography and color-flow sonography. VESSELS IMAGED: Common Femoral Vein Deep Femoral Vein Greater Saphenous Vein * Femoral Vein Popliteal Vein Small Saphenous Vein * Proximal Calf Veins (* superficial vessels) There is normal flow, compressibility, vascular waveforms Right Leg: Negative for DVT IMPRESSION: No evident deep venous thrombosis within the right lower extremity from the level of the knee centrally, consider follow-up in 24 to 48 hours as indicated
[2021-11-25] MEDS ORDERED: IOPAMIDOL CONTRAST (ORAL USE) VIAL PO PRN (10:01)
[2021-11-25] MEDS ORDERED: PEG 3350-NA SULF,BICARB,CL/KCL 4,000 ML BOTTLE PO ONE (11:31)
--- NOTE | 2021-11-25 12:05 | P.GSCN ---
History of Present Illness Consult date: 11/25/21 History of present illness: CHIEF COMPLAINT: Dizziness and near syncope HISTORY OF PRESENT ILLNESS: This is a 36-year-old female who presented to the hospital with complaints of dizziness and near syncopal episode. Patient seen and examined in the ER. She has a poor historian. Apparently she's had 2 episodes of feeling dizzy and near passing out at work. Patient reports having nausea and does have epigastric tenderness. She's had intermittent bright red blood in her stools over the last 2 months. She does reports taking ibuprofen 400 mg every 4-6 hours for her back pain daily for a while. It is unclear length of time. On admission she had a hemoglobin of 6 down to 5.6 she is scheduled for unit of blood. She's also scheduled for computed tomography scan of the abdomen and pelvis. PAST MEDICAL HISTORY: Endometriosis, depression PAST SURGICAL HISTORY: Back surgery, hysterectomy MEDICATIONS: See list. ALLERGIES: See list. SOCIAL HISTORY: No illicit drug use. Nicotine dependence REVIEW OF SYSTEMS: CONSTITUTIONAL: Denies fever or chills. HEENT: Denies blurred vision, vision changes, or eye pain. Denies hemoptysis CARDIOVASCULAR: Denies chest pain or pressure. RESPIRATORY: No shortness of breath. GASTROINTESTINAL: See HPI for pertinent findings HEMATOLOGIC: Denies bleeding disorders. GENITOURINARY: Denies any blood in urine or increased urinary frequency. SKIN: Denies pruitis. Denies rash. PHYSICAL EXAM: VITAL SIGNS: Reviewed GENERAL: Well-developed in no acute distress. HEENT: No sclera icterus. Extraocular movements grossly intact. Moist buccal mucosa. Head is atraumatic, normocephalic. No nasal drainage. ABDOMEN: Soft. Nondistended. Epigastric tenderness NEUROLOGIC: Alert and oriented. Cranial nerves II through XII grossly intact. LABORATORY DATA: WBC is 6.6 Hgb 5.6 platelets 240 INR 0.9 d-dimer 0.56 Sodium 139 potassium 4.3 creatinine 0.79 Mg 1.9 LFTs normal Urine hCG detected Stool for occult blood negative Covid and influenza not detected Urine culture pending IMAGING: gallbladder ultrasound, bile duct is underlying dilated similar to prior exam in 2014. Some limitation to the exam. Venous Doppler no evidence DVT right leg. Chest x-ray no acute cardiopulmonary process ASSESSMENT: 1. Acute blood loss anemia 2. Acute GI bleed 3. Daily NSAID use PLAN: -Patient scheduled for EGD and colonoscopy tomorrow with Dr. Schultz -Clear liquid diet today -Start GoLYTELY prep -Nothing by mouth after midnight -Continue PPI -Continue monitor hemoglobin -Continue monitor for signs or symptoms of bleeding -No NSAIDs Physician Post Doctoral Fellow note has been reviewed by physician. Signing provider agrees with the documented findings, assessment, and plan of care. I have personally seen and examined the patient, reviewed the [employer]OUNT[employer] MANAGER /PAs history, exam and MDM and agree with the assessment and plan as written. Based on total visit time, I have performed more than 50% of the visit. As above: Patient presents with near syncopal episodes and anemia. Patient has had a small amount of intermittent bright red blood per rectum she states. She is a poor historian however. She is saying she wants to go home this evening and does not want to have her endoscopy performed while here. I informed her that she likely would be hospitalized overnight regardless. She says she will consider proceeding with upper and lower endoscopy with myself tomorrow. If the patient is agreeable begin bowel prep tonight. We'll follow. Past Medical History Additional Past Medical History / Comment(s): UTI, chronic low back pain, endometriosis/hysterectomy History of Any Multi-Drug Resistant Organisms: None Reported Past Surgical History: Back Surgery, Hysterectomy, Uterine Ablation Additional Past Surgical History / Comment(s): spinal fusion Past Anesthesia/Blood Transfusion Reactions: No Reported Reaction Past Psychological History: Anxiety, Depression Additional Psychological History / Comment(s): Pt resides with her 2 children and her boyfriend. Smoking Status: Current every day smoker Past Alcohol Use History: None Reported Additional Past Alcohol Use History / Comment(s): Pt started smoking in 2000 and is a ppd smoker. Past Drug Use History: None Reported - Past Family History Father Family Medical History: No Reported History Additional Family Medical History / Comment(s): Father is healthy Mother Additional Family Medical History / Comment(s): Endometriosis Medications and Allergies Home Medications Medication Instructions Recorded Confirmed Type Ibuprofen [Motrin Ib] 800 mg PO DAILY PRN 07/25/18 11/25/21 History Multivitamins, Thera [Multivitamin 1 tab PO DAILY 07/25/18 11/25/21 History (formulary)] Acetaminophen [Tylenol] 650 mg PO Q6H PRN 11/25/21 11/25/21 History Allergies Allergy/AdvReac Type Severity Reaction Status Date / Time No Known Allergies Allergy Verified 11/25/21 08:39 Surgical - Exam Vital Signs Temp Pulse Resp BP Pulse Ox 97.9 F 81 18 117/77 100 11/25/21 07:15 11/25/21 07:15 11/25/21 07:15 11/25/21 07:15 11/25/21 07:15 Results - Labs 11/25/21 08:48 11/25/21 07:30 Abnormal Lab Results - Last 24 Hours (Table) 11/25/21 11/25/21 11/25/21 Range/Units 07:30 07:30 07:30 RBC 3.78 L (3.80-5.40) m/uL Hgb 6.0 L* (11.4-16.0) gm/dL Hct 23.8 L (34.0-46.0) % MCV 63.1 L (80.0-100.0) fL MCH 15.9 L (25.0-35.0) pg MCHC 25.2 L (31.0-37.0) g/dL RDW 17.5 H (11.5-15.5) % Lymphocytes # 0.9 L (1.0-4.8) k/uL APTT 18.2 L (22.0-30.0) sec BUN (7-17) mg/dL Urine Appearance Cloudy H (Clear) Ur Specific [place] 1.040 H (1.001-1.035) Urine Protein 1+ H (Negative) Urine Nitrite Positive H (Negative) Ur Leukocyte Esterase Moderate H (Negative) Urine WBC 12 H (0-5) /hpf Ur Squamous Epith Cells 20 H (0-4) /hpf Urine Bacteria Rare H (None) /hpf Hyaline Casts 7 H (0-2) /lpf Urine Mucus Occasional H (None) /hpf Crossmatch 11/25/21 11/25/21 11/25/21 Range/Units 07:30 08:48 09:37 RBC 3.40 L (3.80-5.40) m/uL Hgb 5.6 L* (11.4-16.0) gm/dL Hct 21.7 L (34.0-46.0) % MCV 63.9 L (80.0-100.0) fL MCH 16.4 L (25.0-35.0) pg MCHC 25.7 L (31.0-37.0) g/dL RDW 17.6 H (11.5-15.5) % Lymphocytes # (1.0-4.8) k/uL APTT (22.0-30.0) sec BUN 21 H (7-17) mg/dL Urine Appearance (Clear) Ur Specific [place] (1.001-1.035) Urine Protein (Negative) Urine Nitrite (Negative) Ur Leukocyte Esterase (Negative) Urine WBC (0-5) /hpf Ur Squamous Epith Cells (0-4) /hpf Urine Bacteria (None) /hpf Hyaline Casts (0-2) /lpf Urine Mucus (None) /hpf Crossmatch See Detail Diabetes panel 11/25/21 Range/Units 07:30 Sodium 139 (137-145) mmol/L Potassium 4.3 (3.5-5.1) mmol/L Chloride 106 (98-107) mmol/L Carbon Dioxide 22 (22-30) mmol/L BUN 21 H (7-17) mg/dL Creatinine 0.79 (0.52-1.04) mg/dL Glucose 93 (74-99) mg/dL Calcium 8.9 (8.4-10.2) mg/dL AST 17 (14-36) U/L ALT 11 (4-34) U/L Alkaline Phosphatase 58 (38-126) U/L Total Protein 7.3 (6.3-8.2) g/dL Albumin 4.6 (3.5-5.0) g/dL Calcium panel 11/25/21 Range/Units 07:30 Calcium 8.9 (8.4-10.2) mg/dL Albumin 4.6 (3.5-5.0) g/dL Pituitary panel 11/25/21 Range/Units 07:30 Sodium 139 (137-145) mmol/L Potassium 4.3 (3.5-5.1) mmol/L Chloride 106 (98-107) mmol/L Carbon Dioxide 22 (22-30) mmol/L BUN 21 H (7-17) mg/dL Creatinine 0.79 (0.52-1.04) mg/dL Glucose 93 (74-99) mg/dL Calcium 8.9 (8.4-10.2) mg/dL Adrenal panel 11/25/21 Range/Units 07:30 Sodium 139 (137-145) mmol/L Potassium 4.3 (3.5-5.1) mmol/L Chloride 106 (98-107) mmol/L Carbon Dioxide 22 (22-30) mmol/L BUN 21 H (7-17) mg/dL Creatinine 0.79 (0.52-1.04) mg/dL Glucose 93 (74-99) mg/dL Calcium 8.9 (8.4-10.2) mg/dL Total Bilirubin 0.2 (0.2-1.3) mg/dL AST 17 (14-36) U/L ALT 11 (4-34) U/L Alkaline Phosphatase 58 (38-126) U/L Total Protein 7.3 (6.3-8.2) g/dL Albumin 4.6 (3.5-5.0) g/dL
--- NOTE | 2021-11-25 12:18 | CT ---
EXAMINATION TYPE: CT abdomen pelvis w con DATE OF EXAM: 11/25/2021 COMPARISON: CT 07/27/2012 HISTORY: abdominal pain, GI bleed CT DLP: 713.3 mGycm Automated exposure control for dose reduction was used. TECHNIQUE: Helical acquisition of images from the lung bases through the pelvis have been completed. CONTRAST: Performed with Oral Contrast and with IV Contrast, patient injected with 70 mL of Isovue 300. FINDINGS: Gastric wall thickening likely due to lack of distention LUNG BASES: No significant abnormality is appreciated. AORTA: No significant abnormality is appreciated. LIVER/GB: No significant abnormality is appreciated. PANCREAS: No significant abnormality is seen. SPLEEN: Spleen is enlarged as on prior exam. ADRENALS: No significant abnormality is seen. KIDNEYS: Prominence the renal collecting systems may progressed in the interval but is symmetric. REPRODUCTIVE ORGANS: Not seen with certainty BOWEL: Retained fecal debris throughout the distribution of the colon. 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 FREE AIR: No Free Air visible. ASCITES: None visible. PELVIC ADENOPATHY: None visualized. RETROPERITONEAL ADENOPATHY: No Retroperitoneal Adenopathy visible. Urine distended No significant abnormality is seen. OSSEOUS STRUCTURES: Scoliotic curvature is noted of the visualized spine IMPRESSION: CORRELATE FOR CONSTIPATION, PROMINENT RENAL COLLECTING SYSTEMS, ADDITIONAL FINDINGS ABOVE
[2021-11-25 17:01] LABS: Glucose,Whole Blood 104 mg/dL (70-110)
[2021-11-25] MEDS: MORPHINE SULFATE 4 MG/ML SYRINGE IV PRN ×2 (17:18→21:23)
[2021-11-25] MEDS ORDERED: ACETAMINOPHEN TAB 325 MG TAB PO PRN (18:29)
[2021-11-25 20:14] LABS: Glucose,Whole Blood 105 mg/dL (70-110)
[2021-11-25 20:36] LABS: Anisocytosis Moderate; Basophils # (A) 0.1 k/uL (0-0.2); Basophils % (A) 1 %; Eosinophils # (A) 0.2 k/uL (0-0.7); Eosinophils % (A) 2 %; HCT 28.3 % (34.0-46.0); Hypochromasia Marked; Lymphocytes # (A) 1.9 k/uL (1.0-4.8); Lymphocytes % (A) 30 %; MCH 18.9 pg (25.0-35.0); MCHC 27.5 g/dL (31.0-37.0); MCV 68.7 fL (80.0-100.0); Mean Platelet Volume 9.5; Microcytosis Marked; Monocytes # (A) 0.4 k/uL (0-1.0); Monocytes % (A) 6 %; Neutrophils # (A) 3.6 k/uL (1.3-7.7); Neutrophils % (A) 57 %; Platelet Count 267 k/uL (150-450); Poikilocytosis Marked; RBC 4.12 m/uL (3.80-5.40); WBC 6.3 k/uL (3.8-10.6)
[2021-11-25 20:38] LABS: HGB 7.8 gm/dL (11.4-16.0)
[2021-11-25] MEDS: PANTOPRAZOLE 40 MG/10 ML VIAL IVP SCH (21:22)
[2021-11-25 23:59] LABS: Anisocytosis Moderate; Basophils % (A) 1 %; Eosinophils # (A) 0.2 k/uL (0-0.7); Eosinophils % (A) 3 %; HCT 27.3 % (34.0-46.0); HGB 7.6 gm/dL (11.4-16.0); Hypochromasia Marked; Lymphocytes # (A) 2.3 k/uL (1.0-4.8); Lymphocytes % (A) 43 %; MCH 19.1 pg (25.0-35.0); MCV 68.2 fL (80.0-100.0); Mean Platelet Volume 8.7; Microcytosis Marked; Monocytes # (A) 0.3 k/uL (0-1.0); Monocytes % (A) 5 %; Neutrophils # (A) 2.4 k/uL (1.3-7.7); Neutrophils % (A) 44 %; Platelet Count 218 k/uL (150-450); Poikilocytosis Marked; RDW 20.8 % (11.5-15.5); WBC 5.4 k/uL (3.8-10.6)
[2021-11-26 06:04] LABS: Glucose,Whole Blood 100 mg/dL (70-110)
[2021-11-26] MEDS ORDERED: LIDOCAINE 1% (10MG/ML) FOR IV START INTRADERMA PRN (07:16)
[2021-11-26] MEDS ORDERED: LACTATED RINGERS 1,000 ML IV SCH (07:16)
--- NOTE | 2021-11-26 07:29 | P.HPIM ---
History of Present Illness H&P Date: 11/25/21 HISTORY OF PRESENT ILLNESS 36-year-old female with past medical history of endometriosis, chronic lower back pain with degenerative disc disease, chronic anemia who has been having significant lower back pain for long time had refused to go for surgical intervention has not seen any orthopedic, back specialist or primary care for the last 4 years. Patient has been taking ibuprofen between 6-800 mg up to 4 times a day sometimes as needed to subtle down her pain. For the last few weeks has been suffering from severe tiredness fatigue with significant change in bowel habit initially started as a black stool and developed to have occasionally bright red blood per rectum. She ended up having syncopal episode yesterday and today she passed out for short period of time without having any seizure activity or any neural loss continue to be severely dizzy and lighthead ed. Ended up coming to the emergency department at [facility] where was seen and evaluated surprisingly her hemoglobin was 5.6 ended up requiring 2 unit of blood transfusion initially, consult general surgery for possible Gastro endoscopy in the next 24 hours patient be hospitalized, no sign and symptom of any cardiovascular problem at this point probably her syncopal episode is mostly anemia and volume loss related. REVIEW OF SYSTEMS Constitutional: No fever, no chills, no night sweats. No weight change. No weakness, fatigue or lethargy. No daytime sleepiness. EENT: No headache. No blurred vision or double vision, no loss of vision. No loss of Hearing, no ringing in the ears, no dizziness. No nasal drainage or congestion. No epistaxis. No sore throat. Lungs: No shortness of breath, cough, no sputum production. No wheezing. Cardiovascular: No chest pain, no lower extremity edema. No palpitations. No paroxysmal nocturnal dyspnea. No orthopnea. No lightheadedness or dizziness. No syncopal episodes. Abdominal: Had lack of appetite with bright red blood per rectum with slight change in bowel habit lately with mild epigastric discomfort. Genitourinary: No dysuria, increased frequency, urgency. No urinary retention. Musculoskeletal: Continued to have significant lower back pain known to have chronic degenerative disc disease. Integumentary: No wounds, no lesions. No rash or pruritus. No unusual bruising. No change in hair or nails. Neurologic: No aphasia. No facial droop. No change in mentation. No head injury. No headache. No paralysis. No paresthesia. Psychiatric: No depression. No anxiety. No mood swings. Endocrine: No abnormal blood sugars. No weight change. No excessive sweating or thirst. No cold intolerance. SOCIAL HISTORY She smokes one pack a day for the last 15 years, no code abuse, no marijuana use, patient does not have any oxygen or CPAP at home, she is single and lives a lone. FAMILY HISTORY Patient has 2 children both living and well. 2 siblings with no major medical problem. Her mother isn't a 56 doing well, father is in his 53 with no major medical problem. PHYSICAL EXAMINATION Gen: This is a well-developed laying in bed does not look in any respiratory distress. HEENT: Head is atraumatic, normocephalic. Pupils equal, round. Sclerae is anicteric. NECK: Supple. No JVD. No lymphadenopathy. No thyromegaly. LUNGS: Clear to auscultation. No wheezes or rhonchi. No intercostal retractions. HEART: Regular rate and rhythm. No murmur. ABDOMEN: Soft. Bowel sounds are present. No masses. Slight discomfort in the epigastric area otherwise normal. EXTREMITIES: No pedal edema. No calf tenderness. NEUROLOGICAL: Patient is awake, alert and oriented x3. Cranial nerves 2 through 12 are grossly intact. ASSESSMENT AND PLAN - Severe acute anemia: Most likely secondary to GI bleed, patient be admitted to the hospital, 2 unit blood transfusion be done, consult Dr. Antoine bray [facility] for possible EGD and colonoscopy, continue to watch for any further bleed and this time. - Subacute gastrointestinal bleed with bright red blood per rectum has been ongoing for the last month with severe anemia patient is using larger dose of ibuprofen for lower back pain most likely she is having severe gastritis or peptic ulcer disease with bleed. Patient again will be hospitalized will be going for an EGD as a best next step and might require colonoscopy prep for both should be done as a next step. - Acute blood loss anemia: Will require blood transfusion at this point repeat CBC in 24 hours patient will have more blood transfusion if needed otherwise iron supplement will be require from now on. - Chronic lower back pain: With chronic degenerative disc disease patient has been self managing herself with a larger dose of ibuprofen, to switch to Tylenol products at this point and probably mild muscle relaxer can be helpful she might need to be referred to pain management for epidural injection. - History of endometriosis: Post hysterectomy has been doing well. - Chronic history of smoking and tobacco use: Patient can benefit from nicotine patch 14 mg daily. - GI prophylaxis: Patient be on pantoprazole IV. - DVT prophylaxis: We have knee-high DARREN hose and Venodyne boots. - CODE STATUS: Full code - COVID-19 testing. Patient will be admitted to the hospital for a minimum of 2 night stay. Past Medical History Additional Past Medical History / Comment(s): endometriosis History of Any Multi-Drug Resistant Organisms: None Reported Past Surgical History: Back Surgery, Hysterectomy Additional Past Surgical History / Comment(s): spinal fusion Past Anesthesia/Blood Transfusion Reactions: No Reported Reaction Past Psychological History: Depression Smoking Status: Current every day smoker Past Alcohol Use History: None Reported Past Drug Use History: None Reported - Past Family History Father Family Medical History: No Reported History Additional Family Medical History / Comment(s): Father is healthy Mother Additional Family Medical History / Comment(s): Endometriosis Medications and Allergies Home Medications Medication Instructions Recorded Confirmed Type Ibuprofen [Motrin Ib] 800 mg PO DAILY PRN 07/25/18 11/25/21 History Multivitamins, Thera [Multivitamin 1 tab PO DAILY 07/25/18 11/25/21 History (formulary)] Acetaminophen [Tylenol] 650 mg PO Q6H PRN 11/25/21 11/25/21 History Allergies Allergy/AdvReac Type Severity Reaction Status Date / Time No Known Allergies Allergy Verified 11/25/21 08:39 Physical Exam Vitals: Vital Signs Temp Pulse Resp BP Pulse Ox 11/25/21 18:03 97.1 F L 72 16 122/73 99 11/25/21 15:19 96.7 F L 74 16 115/67 98 11/25/21 14:49 96.7 F L 77 16 112/63 99 11/25/21 14:39 96.4 F L 72 16 104/61 95 11/25/21 14:35 96.4 F L 72 16 104/61 11/25/21 14:00 16 11/25/21 12:45 98.4 F 73 17 114/76 100 11/25/21 12:15 98.8 F 70 16 112/65 100 11/25/21 12:04 98.9 F 70 18 102/60 100 11/25/21 10:00 79 19 123/67 99 11/25/21 09:00 69 18 116/71 99 11/25/21 08:00 97.9 F 73 20 105/71 100 11/25/21 07:15 97.9 F 81 18 117/77 100 Intake and Output 11/25/21 11/25/21 11/25/21 06:59 14:59 22:59 Intake Total 275 930 Balance 275 930 Intake: Blood Product 275 930 Rc As-1 Unit 0 310 [id number] Rc Pheresis As-3 Unit 275 [id number] Other: Weight 65.771 kg Results CBC & Chem 7: 11/25/21 23:15 11/25/21 07:30 Labs: Abnormal Lab Results - Last 24 Hours (Table) 11/25/21 11/25/21 11/25/21 Range/Units 07:30 07:30 07:30 RBC 3.78 L (3.80-5.40) m/uL Hgb 6.0 L* (11.4-16.0) gm/dL Hct 23.8 L (34.0-46.0) % MCV 63.1 L (80.0-100.0) fL MCH 15.9 L (25.0-35.0) pg MCHC 25.2 L (31.0-37.0) g/dL RDW 17.5 H (11.5-15.5) % Lymphocytes # 0.9 L (1.0-4.8) k/uL APTT 18.2 L (22.0-30.0) sec BUN (7-17) mg/dL Urine Appearance Cloudy H (Clear) Ur Specific [place] 1.040 H (1.001-1.035) Urine Protein 1+ H (Negative) Urine Nitrite Positive H (Negative) Ur Leukocyte Esterase Moderate H (Negative) Urine WBC 12 H (0-5) /hpf Ur Squamous Epith Cells 20 H (0-4) /hpf Urine Bacteria Rare H (None) /hpf Hyaline Casts 7 H (0-2) /lpf Urine Mucus Occasional H (None) /hpf Crossmatch 11/25/21 11/25/21 11/25/21 Range/Units 07:30 08:48 09:37 RBC 3.40 L (3.80-5.40) m/uL Hgb 5.6 L* (11.4-16.0) gm/dL Hct 21.7 L (34.0-46.0) % MCV 63.9 L (80.0-100.0) fL MCH 16.4 L (25.0-35.0) pg MCHC 25.7 L (31.0-37.0) g/dL RDW 17.6 H (11.5-15.5) % Lymphocytes # (1.0-4.8) k/uL APTT (22.0-30.0) sec BUN 21 H (7-17) mg/dL Urine Appearance (Clear) Ur Specific [place] (1.001-1.035) Urine Protein (Negative) Urine Nitrite (Negative) Ur Leukocyte Esterase (Negative) Urine WBC (0-5) /hpf Ur Squamous Epith Cells (0-4) /hpf Urine Bacteria (None) /hpf Hyaline Casts (0-2) /lpf Urine Mucus (None) /hpf Crossmatch See Detail Thrombosis Risk Factor Assmnt - Choose All That Apply Any of the Below Risk Factors Present?: Yes Each Factor Represents 1 point: Swollen legs (current) Other Risk Factors: No Other congenital or acquired thrombophilia - If yes, enter type in comment: No Thrombosis Risk Factor Assessment Total Risk Factor Score: 1 Thrombosis Risk Factor Assessment Level: Low Risk
[2021-11-26] MEDS: PANTOPRAZOLE 40 MG/10 ML VIAL IVP SCH (08:51)
[2021-11-26] MEDS: MORPHINE SULFATE 4 MG/ML SYRINGE IV PRN (08:51)
[2021-11-26 09:05] LABS: Anisocytosis Moderate; HGB 7.9 gm/dL (11.4-16.0); Hypochromasia Marked; MCH 19.3 pg (25.0-35.0); MCHC 28.1 g/dL (31.0-37.0); MCV 68.6 fL (80.0-100.0); Mean Platelet Volume 8.2; Microcytosis Marked; Platelet Count 228 k/uL (150-450); Poikilocytosis Marked; RBC 4.08 m/uL (3.80-5.40); WBC 3.6 k/uL (3.8-10.6)
[2021-11-26 09:43] LABS: African American GFR (CKD) >90 (>60 ml/min/1.73 sqM); Anion Gap 8 mmol/L; Blood Urea Nitrogen 15 mg/dL (7-17); Calcium 8.7 mg/dL (8.4-10.2); Carbon Dioxide 23 mmol/L (22-30); Chloride 107 mmol/L (98-107); Glucose 81 mg/dL (74-99); Non-African American GFR(CKD) >90 (>60 ml/min/1.73 sqM); Potassium 4.5 mmol/L (3.5-5.1); Sodium 138 mmol/L (137-145)
[2021-11-26 10:09] VITALS: RESP 15
[2021-11-26] MEDS ORDERED: PROPOFOL 10 MG/ML 20 ML VIAL IV ONE (10:31)
[2021-11-26] MEDS ORDERED: LIDOCAINE 2% INJ 20 MG/ML (2 ML VIAL) ONE (10:31)
[2021-11-26] MEDS ORDERED: SODIUM CHLORIDE 0.9% 500 ML 500 ML IV ONE (10:33)
--- NOTE | 2021-11-26 10:51 | P.PCN ---
Date of Procedure: 11/26/21 Procedure(s) Performed: Preoperative Dx: Anemia, abdominal pain Postoperative Dx: Gastritis with gastric ulceration Procedure: EGD with Bx Anesthesia: Sedation Endoscopist: Dr. Schultz Specimens: Antrum/gastric ulcer Endoscopic Procedure: The patient was on the endoscopy table in the left decubitus position. The Olympus gastroscope was inserted into the oropharynx and passed under direct visualization to the region of the third portion of the duodenum. From that point the scope was slowly withdrawn inspecting all surfaces carefully. There were no neoplastic inflammatory or polypoid lesions throughout the duodenum. The pylorus was widely patent. The stomach was carefully inspected. There was gastritis present with 2 small superficial ulcers in the prepyloric region. Biopsies of that area took place. Retroflexion revealed a normal hiatus. The esophagus was then carefully examined. There were no neoplastic inflammatory or polypoid lesions throughout the visualized esophagus. The patient was then taken to the recovery room in stable condition per anesthesia guidelines. Recommendations: Patient was unable to tolerate her prep last night she states. She insists that she is going home today. She would like to have the colonoscopy arranged as an outpatient. Patient's abdomen is soft and nondistended. There is no tenderness. May discharge on oral antiacids from my standpoint. Avoid NSAID use. Arrange outpatient colonoscopy.
--- NOTE | 2021-11-26 10:56 | P.DS ---
Providers Date of admission: 11/25/21 09:38 Expected date of discharge: 11/26/21 Attending physician: Pranav Soto Consults: 11/25/21 09:35 Consult Physician Routine Consulting Provider: Demarcus Schultz Reason/Comments: gi bleed, hematochezia Do you want consulting provider notified?: Already Contacted Primary care physician: [facility] Course: HISTORY OF PRESENT ILLNESS 36-year-old female with past medical history of endometriosis, chronic lower back pain with degenerative disc disease, chronic anemia who has been having significant lower back pain for long time had refused to go for surgical intervention has not seen any orthopedic, back specialist or primary care for the last 4 years. Patient has been taking ibuprofen between 6-800 mg up to 4 times a day sometimes as needed to subtle down her pain. For the last few weeks has been suffering from severe tiredness fatigue with significant change in bowel habit initially started as a black stool and developed to have occasionally bright red blood per rectum. She ended up having syncopal episode yesterday and today she passed out for short period of time without having any seizure activity or any neural loss continue to be severely dizzy and lightheaded. Ended up coming to the emergency department at [facility] where was seen and evaluated surprisingly her hemoglobin was 5.6 ended up requiring 2 unit of blood transfusion initially, consult general surgery for possible Gastro endoscopy in the next 24 hours patient be hospitalized, no sign and symptom of any cardiovascular problem at this point probably her syncopal episode is mostly anemia and volume loss related. 11/26: Patient was seen by general surgery and scheduled for EGD and colonoscopy today with Dr. Schultz. Patient unfortunately did not consume the GoLYTELY and did not have a bowel movement and not cleared for colonoscopy. She underwent EGD that found gastritis and gastric ulceration. Recommendations on oral anti- acids, avoid nonsteroidals and arrange outpatient colonoscopy. Hemoglobin last evening was 7.8 and 7.6. Hemoglobin this morning 7.9 and she is status post transfusion of 2 units of packed RBCs. CT of the abdomen and pelvis with contrast revealed constipation, prominent renal collecting systems. Patient will be discharged home today in stable condition. DISCHARGE DIAGNOSES - Severe acute anemia: Most likely secondary to gastritis and gastric ulcer secondary to nonsteroidal anti-inflammatories. - Subacute gastrointestinal bleed with bright red blood per rectum - Acute blood loss anemia status post transfusion of 2 units of packed RBCs. - Chronic lower back pain - History of endometriosis: Post hysterectomy - Chronic history of smoking and tobacco use DISCHARGE PLAN Home Greater than 35 minutes was utilized and coordinating patient's discharge. Impression and plan of care have been directed as dictated by the signing physician. Savanna Melissa nurse practitioner acting as scribe for signing physician. , Patient Condition at Discharge: Stable Plan - Discharge Summary Discharge Rx Participant: No New Discharge Prescriptions: New Omeprazole [PriLOSEC] 40 mg PO AC-BRKFST #90 cap Continue Multivitamins, Thera [Multivitamin (formulary)] 1 tab PO DAILY Acetaminophen [Tylenol] 650 mg PO Q6H PRN PRN Reason: Pain Discontinued Ibuprofen [Motrin Ib] 800 mg PO DAILY PRN PRN Reason: Pain Discharge Medication List Multivitamins, Thera [Multivitamin (formulary)] 1 tab PO DAILY 07/25/18 [History] Acetaminophen [Tylenol] 650 mg PO Q6H PRN 11/25/21 [History] Omeprazole [PriLOSEC] 40 mg PO AC-BRKFST #90 cap 11/26/21 [Rx] Follow up Appointment(s)/Referral(s): Demarcus Schultz MD [Medical Doctor] - 1 Week Ángela Mora MD [Primary Care Provider] - 1 Week Discharge Disposition: HOME SELF-CARE
[2021-11-26 11:38] LABS: Glucose,Whole Blood 101 mg/dL (70-110)
[2021-11-26 11:51] VITALS: BP 117/70; PULSE 73; TEMP 98.3
[2021-11-26 14:16] LABS: Basophils # (M) 0.04 k/uL (0-0.2); Eosinophils # (M) 0.29 k/uL (0-0.7); Monocytes # (M) 0.18 k/uL (0-1.0); Neutrophils # (M) 1.69 k/uL (1.3-7.7); Neutrophils % (M) 47 %; Nucleated Red Blood Cells 0 /100 WBC (0-0); Total Cells Counted 100
== END 2021-11-26 13:20 | disposition home or self-care (01) | DRG 378 ==
LOC: EC 07:10 → 3SCARD 09:38
PROVIDERS: ADMIT Internal Medicine Geriatric Medicine; ATTEND Internal Medicine Geriatric Medicine
PROC: 30233N1 Transfusion of Nonautologous Red Blood Cells into Peripheral Vein, Percutaneous Approach (ICD-10-PCS; 2021-11-25)
PROC: 0DB78ZX Excision of Stomach, Pylorus, Via Natural or Artificial Opening Endoscopic, Diagnostic (ICD-10-PCS; principal; 2021-11-26 13:30)
DX: K25.4 Chronic or unspecified gastric ulcer with hemorrhage (principal); D62 Acute posthemorrhagic anemia; B96.20 Unspecified Escherichia coli [E. coli] as the cause of diseases classified elsewhere; T39.395A Adverse effect of other nonsteroidal anti-inflammatory drugs [NSAID], initial encounter; Z20.822 Contact with and (suspected) exposure to COVID-19; R55 Syncope and collapse; D50.9 Iron deficiency anemia, unspecified; F17.210 Nicotine dependence, cigarettes, uncomplicated; M54.50 Low back pain, unspecified; F32.A Depression, unspecified; G89.29 Other chronic pain; K59.00 Constipation, unspecified; Z90.710 Acquired absence of both cervix and uterus; Z98.1 Arthrodesis status; Z87.42 Personal history of other diseases of the female genital tract; X58.XXXA Exposure to other specified factors, initial encounter
CPT/HCPCS: 36415; 43239; 71046; 74177; 76705; 80048; 80053; 81001; 82272; 83735; 84703; 85025; 85027; 85379; 85610; 85730; 86850; 86900; 86901; 86920; 87077; 87086; 87186; 87502; 87635; 88305; 93005; 96361; 96374; 96375; 99285

== ENCOUNTER 2023-05-10 12:03 | Inpatient (IN) | payer OTHER ==
--- NOTE | 2023-05-10 12:34 | ED ---
General Adult HPI - General Chief complaint: Syncope Stated complaint: Syncope Time Seen by Provider: 05/10/23 12:27 Source: patient, RN notes reviewed Mode of arrival: ambulatory Limitations: no limitations - History of Present Illness Initial comments: Patient is a pleasant 30-year-old female presenting to the emergency Department with syncopal episodes. Patient had an episode yesterday as well as the day before. Patient has been feeling lightheaded. During both episodes patient was walking. Patient does have history of ulcers with similar symptoms previously. Patient has had dark stools for the past month that improved and almost a week ago. A craven did have a few days of mild epigastric discomfort, none at this time. - Related Data Home Medications Medication Instructions Recorded Confirmed Acetaminophen Tab [Tylenol Tab] 1,000 mg PO Q4H 05/10/23 05/10/23 Ibuprofen [Motrin Ib] 400 mg PO BID PRN 05/10/23 05/10/23 Kratom 500mg Capsules 2,000 mg PO TID 05/10/23 05/10/23 Allergies Allergy/AdvReac Type Severity Reaction Status Date / Time No Known Allergies Allergy Verified 05/10/23 13:35 Review of Systems ROS Statement: Those systems with pertinent positive or pertinent negative responses have been documented in the HPI. ROS Other: All systems not noted in ROS Statement are negative. Constitutional: Denies: fever Eyes: Denies: eye pain ENT: Denies: ear pain Respiratory: Denies: cough, dyspnea Cardiovascular: Denies: chest pain Endocrine: Denies: fatigue Gastrointestinal: Reports: as per HPI Genitourinary: Denies: dysuria Musculoskeletal: Denies: back pain Past Medical History Additional Past Medical History / Comment(s): endometriosis History of Any Multi-Drug Resistant Organisms: None Reported Past Surgical History: Back Surgery, Hysterectomy Additional Past Surgical History / Comment(s): spinal fusion Past Anesthesia/Blood Transfusion Reactions: No Reported Reaction Past Psychological History: Depression Smoking Status: Current every day smoker Past Alcohol Use History: None Reported Past Drug Use History: None Reported - Past Family History Father Family Medical History: No Reported History Additional Family Medical History / Comment(s): Father is healthy Mother Additional Family Medical History / Comment(s): Endometriosis General Exam Limitations: no limitations General appearance: alert, in no apparent distress Head exam: Present: normocephalic Eye exam: Present: other (pale conjunctiva) Neck exam: Present: normal inspection Respiratory exam: Present: normal lung sounds bilaterally Cardiovascular Exam: Present: normal rhythm, tachycardia Expanded Peripheral pulses: 2+: Radial (R), Radial (L), Dorsalis Pedis (R), Dorsalis Pedis (L) GI/Abdominal exam: Present: soft. Absent: distended, tenderness, guarding, rebound, pulsatile mass Extremities exam: Present: normal inspection, calf tenderness (Minimal right) Neurological exam: Present: alert. Absent: motor sensory deficit Psychiatric exam: Present: normal affect, normal mood Skin exam: Present: normal color Course Vital Signs 05/10/23 05/10/23 12:09 12:20 Temperature 98.6 F Pulse Rate 122 H 103 H Respiratory 18 16 Rate Blood Pressure 126/73 O2 Sat by Pulse 100 100 Oximetry EKG Findings - EKG Results: EKG: interpreted by ARDHA, sinus rhythm, normal axis, normal QRS, normal ST/T Medical Decision Making - Medical Decision Making Was pt. sent in by a medical professional or institution ([facility], RAILROAD TRACK MECHANIC, urgent care, hospital, or custodial...) When possible be specific @ -No Did you speak to anyone other than the patient for history (EMS, parent, family, police, friend...)? What history was obtained from this source @ -No Did you review nursing and triage notes (agree or disagree)? Why? @ -I reviewed and agree with nursing and triage notes Were old charts reviewed (outside hosp., previous admission, EMS record, old EKG, old radiological studies, urgent care reports/EKG's, custodial records)? Report findings @ -Previous labs reviewed Differential Diagnosis (chest pain, altered mental status, abdominal pain women, abdominal pain men, vaginal bleeding, weakness, fever, dyspnea, syncope, headache, dizziness, GI bleed, back pain, seizure, CVA, palpatations, mental health, musculoskeletal)? @ -Differential Syncope: Valvular disease, hypertrophic cardiomyopathy, pulmonary embolism, tamponade, tachycardia, bradycardia, MA, hypovolemia, hemorrhage, dissection, anemia, intracranial hemorrhage, seizure, hypoglycemia, carbon monoxide poisoning, this is not meant to be an all-inclusive list. EKG interpreted by me (3pts min.). @ -As above X-rays interpreted by me (1pt min.). @ -Chest x-ray shows no acute process. scoliosis CT interpreted by me (1pt min.). @ -None done U/S interpreted by me (1pt. min.). @ -None done What testing was considered but not performed or refused? (CT, X-rays, U/S, labs)? Why? @ -None What meds were considered but not given or refused? Why? @ -None Did you discuss the management of the patient with other professionals (professionals i.e. , PA, RAILROAD TRACK MECHANIC, lab, RT, psych nurse, social media community manager, emergency preparedness coordinator, te acher, chief analytics officer, case packer)? Give summary @ -Case was discussed with Dr. Love, who will admit covering Dr. Mora Was smoking cessation discussed for >3mins.? @ -No Was critical care preformed (if so, how long)? @ -31 minutes of critical care time Were there social determinants of health that impacted care today? How? (Homelessness, low income, unemployed, alcoholism, drug addiction, transportation, low edu. Level, literacy, decrease access to med. care, care home, rehab)? @ -No Was there de-escalation of care discussed even if they declined (Discuss DNR or withdrawal of care, Hospice)? DNR status @ -No What co-morbidities impacted this encounter? (DM, HTN, Smoking, COPD, CAD, Cancer, CVA, ARF, Chemo, Hep., AIDS, mental health diagnosis, sleep apnea, morbid obesity)? @ -None Was patient admitted / discharged? Hospital course, mention meds given and route, prescriptions, significant lab abnormalities, going to OR and other pertinent info. @ -Patient reevaluated and updated. Patient does have history of peptic ulcer disease with anemia and syncope similar to today. Hemoglobin 4.7. Patient will receive 2 units MB rechecked. Neurology Will Be Placed on Consult. Undiagnosed new problem with uncertain prognosis? @ -No Drug Therapy requiring intensive monitoring for toxicity (Heparin, Nitro, Insulin, Cardizem)? @ -Patient will receive 2 units of blood requiring monitoring Were any procedures done? @ -No Diagnosis/symptom? @ -Syncope, anemia Acute, or Chronic, or Acute on Chronic? @ -Acute, acute Uncomplicated (without systemic symptoms) or Complicated (systemic symptoms)? @ -Anemia as complicated with syncope Side effects of treatment? @ -No Exacerbation, Progression, or Severe Exacerbation? @ -No Poses a threat to life or bodily function? How? (Chest pain, USA, MA, pneumonia, PE, COPD, DKA, ARF, appy, cholecystitis, CVA, Diverticulitis, Homicidal, Suicidal, threat to staff... and all critical care pts) @ -No - Lab Data Result diagrams: 05/10/23 12:34 05/10/23 12:34 Lab Results 05/10/23 05/10/23 05/10/23 Range/Units 12:34 12:34 12:34 WBC 5.3 (3.8-10.6) k/uL RBC 2.98 L (3.80-5.40) m/uL Hgb 4.7 L* (11.4-16.0) gm/dL Hct 19.0 L* (34.0-46.0) % MCV 63.5 L (80.0-100.0) fL MCH 15.8 L (25.0-35.0) pg MCHC 24.8 L (31.0-37.0) g/dL RDW 20.0 H (11.5-15.5) % Plt Count 401 (150-450) k/uL MPV 9.9 Neutrophils % 61 % Lymphocytes % 27 % Monocytes % 4 % Eosinophils % 3 % Basophils % 1 % Neutrophils # 3.3 (1.3-7.7) k/uL Lymphocytes # 1.5 (1.0-4.8) k/uL Monocytes # 0.2 (0-1.0) k/uL Eosinophils # 0.2 (0-0.7) k/uL Basophils # 0.1 (0-0.2) k/uL Hypochromasia Marked Anisocytosis Slight Microcytosis Marked PT 10.0 (10.0-12.5) sec INR 0.9 (<1.2) APTT 21.6 L (22.0-30.0) sec D-Dimer 1.05 H (<0.60) mg/L FEU Sodium 140 (137-145) mmol/L Potassium 3.9 (3.5-5.1) mmol/L Chloride 107 (98-107) mmol/L Carbon Dioxide 20 L (22-30) mmol/L Anion Gap 13 mmol/L BUN 13 (7-17) mg/dL Creatinine 0.45 L (0.52-1.04) mg/dL Est GFR (CKD-EPI)AfAm >90 (>60 ml/min/1.73 sqM) Est GFR (CKD-EPI)NonAf >90 (>60 ml/min/1.73 sqM) Glucose 127 H (74-99) mg/dL Calcium 8.8 (8.4-10.2) mg/dL Magnesium 2.0 (1.6-2.3) mg/dL Total Bilirubin 0.2 (0.2-1.3) mg/dL AST 24 (14-36) U/L ALT 15 (4-34) U/L Alkaline Phosphatase 82 (38-126) U/L Troponin I (0.000-0.034) ng/mL Total Protein 7.0 (6.3-8.2) g/dL Albumin 4.2 (3.5-5.0) g/dL 05/10/23 Range/Units 12:34 WBC (3.8-10.6) k/uL RBC (3.80-5.40) m/uL Hgb (11.4-16.0) gm/dL Hct (34.0-46.0) % MCV (80.0-100.0) fL MCH (25.0-35.0) pg MCHC (31.0-37.0) g/dL RDW (11.5-15.5) % Plt Count (150-450) k/uL MPV Neutrophils % % Lymphocytes % % Monocytes % % Eosinophils % % Basophils % % Neutrophils # (1.3-7.7) k/uL Lymphocytes # (1.0-4.8) k/uL Monocytes # (0-1.0) k/uL Eosinophils # (0-0.7) k/uL Basophils # (0-0.2) k/uL Hypochromasia Anisocytosis Microcytosis PT (10.0-12.5) sec INR (<1.2) APTT (22.0-30.0) sec D-Dimer (<0.60) mg/L FEU Sodium (137-145) mmol/L Potassium (3.5-5.1) mmol/L Chloride (98-107) mmol/L Carbon Dioxide (22-30) mmol/L Anion Gap mmol/L BUN (7-17) mg/dL Creatinine (0.52-1.04) mg/dL Est GFR (CKD-EPI)AfAm (>60 ml/min/1.73 sqM) Est GFR (CKD-EPI)NonAf (>60 ml/min/1.73 sqM) Glucose (74-99) mg/dL Calcium (8.4-10.2) mg/dL Magnesium (1.6-2.3) mg/dL Total Bilirubin (0.2-1.3) mg/dL AST (14-36) U/L ALT (4-34) U/L Alkaline Phosphatase (38-126) U/L Troponin I <0.012 (0.000-0.034) ng/mL Total Protein (6.3-8.2) g/dL Albumin (3.5-5.0) g/dL Critical Care Time Critical Care Time: Yes Total Critical Care Time: 31 Disposition Clinical Impression: Symptomatic anemia, GI bleed, Syncope Disposition: ADMITTED IP TO THIS HOSP Is patient prescribed a controlled substance at d/c from ED?: No Referrals: Ángela Mora MD [Primary Care Provider] - 1-2 days Time of Disposition: 13:51
[2023-05-10 12:53] LABS: Anisocytosis Slight; Basophils # (A) 0.1 k/uL (0-0.2); Basophils % (A) 1 %; Eosinophils # (A) 0.2 k/uL (0-0.7); Eosinophils % (A) 3 %; Hypochromasia Marked; Lymphocytes # (A) 1.5 k/uL (1.0-4.8); Lymphocytes % (A) 27 %; MCH 15.8 pg (25.0-35.0); MCHC 24.8 g/dL (31.0-37.0); MCV 63.5 fL (80.0-100.0); Mean Platelet Volume 9.9; Microcytosis Marked; Monocytes # (A) 0.2 k/uL (0-1.0); Monocytes % (A) 4 %; Neutrophils # (A) 3.3 k/uL (1.3-7.7); Neutrophils % (A) 61 %; Platelet Count 401 k/uL (150-450); RBC 2.98 m/uL (3.80-5.40); WBC 5.3 k/uL (3.8-10.6)
[2023-05-10 12:57] LABS: ALT 15 U/L (4-34); AST 24 U/L (14-36); African American GFR (CKD) >90 (>60 ml/min/1.73 sqM); Albumin 4.2 g/dL (3.5-5.0); Alkaline Phosphatase 82 U/L (38-126); Anion Gap 13 mmol/L; Blood Urea Nitrogen 13 mg/dL (7-17); Calcium 8.8 mg/dL (8.4-10.2); Carbon Dioxide 20 mmol/L (22-30); Chloride 107 mmol/L (98-107); Glucose 127 mg/dL (74-99); Non-African American GFR(CKD) >90 (>60 ml/min/1.73 sqM); Potassium 3.9 mmol/L (3.5-5.1); Sodium 140 mmol/L (137-145); Total Bilirubin 0.2 mg/dL (0.2-1.3)
[2023-05-10 13:01] LABS: HGB 4.7 gm/dL (11.4-16.0)
[2023-05-10] MEDS ORDERED: PANTOPRAZOLE 40 MG/10 ML VIAL IVP STA (13:03)
--- NOTE | 2023-05-10 13:11 | XR ---
EXAMINATION TYPE: XR chest 2V DATE OF EXAM: 05/10/2023 COMPARISON: 11/25/2021 HISTORY: Chest pain TECHNIQUE: Frontal and lateral views of the chest are obtained. FINDINGS: There is no focal air space opacity. No evidence for pneumothorax. No pleural effusion. The cardiac silhouette size is within normal limits. The osseous structures are grossly intact. Thoracic scoliosis convex to the right. IMPRESSION: 1. No acute cardiopulmonary process.
[2023-05-10 13:13] LABS: INR 0.9 (<1.2)
[2023-05-10 13:15] LABS: Partial Thromboplastin Time 21.6 sec (22.0-30.0)
[2023-05-10] MEDS ORDERED: NALOXONE 0.4 MG/ML 1 ML VIAL IV PRN (13:52)
[2023-05-10] MEDS ORDERED: PANTOPRAZOLE 40 MG/10 ML VIAL IV SCH (14:00)
--- NOTE | 2023-05-10 14:11 | US ---
EXAMINATION TYPE: US venous doppler duplex LE RT DATE OF EXAM: 05/10/2023 1:27 PM COMPARISON: 11/25/2021 CLINICAL INDICATION: Female, 38 years old with history of pain; pain in right leg ongoing for over a year, no h/o dvt SIDE PERFORMED: Right TECHNIQUE: The lower extremity deep venous system is examined utilizing real time linear array sonog tracie with graded compression, doppler sonography and color-flow sonography. VESSELS IMAGED: Common Femoral Vein Deep Femoral Vein Greater Saphenous Vein * Femoral Vein Popliteal Vein Small Saphenous Vein * Proximal Calf Veins (* superficial vessels) Right Leg: Negative for DVT 3.5 x 0.6 x 1.9cm medial pop fossa fluid collection, probable [facility] [address] IMPRESSION: 1. No diagnostic evidence of DVT. 2. 3.5 cm popliteal fossa cyst.
[2023-05-10] MEDS: SODIUM CHLORIDE 0.9% 1,000 ML IV SCH (16:25)
[2023-05-10] MEDS ORDERED: ACETAMINOPHEN TAB 500 MG TAB PO PRN (17:54)
--- NOTE | 2023-05-10 18:13 | P.HPIM ---
History of Present Illness This is a pleasant 38 years old female with past medical history of gastric ulcer about one year ago, history of hysterectomy and endometriosis, depression, nicotine dependence, and back pain status post back surgery and fusion proc edure. patient presents to the emergency room today because of 2 episodes of syncope which happened yesterday and the day before in which the patient states she passed out for about less than 30 seconds with no seizure-like activity, no urine or bowel incontinence unknown called by taking. Also patients with no postictal confusion as patient will come apart away. Patient denies had a trauma or other body trauma. Patient states that before she passes out she becomes short of breath and feeling like anxiety attack before she passes out. She reports some abdominal pain that is been going on for about one month and stopped 1 week ago She reports black stool at that time but currently her stool is back to light brown. Patient states that she has history of gastric ulcer about one year ago and she was concerned she has recurrence of her ulcer disease. When I ask her if she takes any pain medication she told me she uses Tylenol and kratom but she confirms to me she is not using any NSAIDs, I advised the patient to avoid NSAIDs like ibuprofen, Mobic, naproxen and Motrin or aspirin and she ve rbalized understanding and acceptance. Patient currently denies chest pain or dyspnea, no abdominal pain, no vomiting, no diarrhea, no black stool or fresh blood in stool. She denies dizziness at rest but states she got dizzy when she tries to stand up. No weakness or numbness or blurred vision or slurred speech. She has mild headache. She is a smoker about 1 pack per day and she was counseled to quit but she declines. She denies alcohol or illicit drugs. Patient denies depression, suicidal or homicidal ideation, she denies hallucination. Vitals reviewed and looks his stable, her blood pressure 134/78, she was tachycardic on admission 122, currently heart rate came down to 98. She is a febrile and no tachypnea. She is breathing about 16 breaths per minute and saturating 99% 200% on room air. On admission her WBC was normal at 5.3 but hemoglobin severity low at 4.7. BMP, liver enzymes, INR were unremarkable. Troponin is less than 0.012. Ultrasound of the neck is negative for DVT punch was 3.5 cm popliteal cyst on the right leg. EKG showed normal sinus rhythm at [address] T changes, QTC 402. Chest x-ray: No acute process in the review the chest x-ray by myself and agree with it. Patient told me that she intends to leave the hospital tonight me after she got into units of blood transfusion, she states that she does not want to miss her work tomorrow otherwise she will lose her job benefits that she walked on for more than a week. 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 I explained to her she will need to send the hospital for her medical condition since his serious and upon discharge week and a provided her with a sick leave to her work but she declines. Risks of leaving AMA before full workup and treatment are explained for the patient in details including but not limited to the risk of more severe anemia, bleeding from GI or anywhere else, heart attack, hypertension, injury from falling and/or , patient verbalized understanding and she told me these risks back but she still will consider leaving AMA. I told the patient is there is anything I can do or safe to change her mind, she replies "No" Based upon my evaluation patient has capacity to make medical decision. Patient was instructed if she leaves AMA then she developed symptoms are just changes her mind and to call 911 on come to emergency room, otherwise I advised her to go see her PCP tomorrow and she agrees Review of Systems Review of systems CONSTITUTIONAL: No fever, no malaise, no fatigue. HEENT: No recent visual problems or hearing problems. Denied any sore throat. CARDIOVASCULAR: No orthopnea, PND, no palpitations, no syncope. PULMONARY: No shortness of breath, no cough, no hemoptysis. GASTROINTESTINAL: No diarrhea, no nausea, no vomiting, no abdominal pain. Normoactive bowel sounds. NEUROLOGICAL: No headaches, no weakness, no numbness. HEMATOLOGICAL: Denies any bleeding or petechiae. GENITOURINARY: Denies any burning micturition, frequency, or urgency. MUSCULOSKELETAL/RHEUMATOLOGICAL: Denies any joint pain, swelling, or any muscle pain. ENDOCRINE: Denies any polyuria or polydipsia. Past Medical History Additional Past Medical History / Comment(s): endometriosis History of Any Multi-Drug Resistant Organisms: None Reported Past Surgical History: Back Surgery, Hysterectomy Additional Past Surgical History / Comment(s): spinal fusion Past Anesthesia/Blood Transfusion Reactions: No Reported Reaction Past Psychological History: Depression Smoking Status: Current every day smoker Past Alcohol Use History: None Reported Past Drug Use History: None Reported - Past Family History Father Family Medical History: No Reported History Additional Family Medical History / Comment(s): Father is healthy Mother Additional Family Medical History / Comment(s): Endometriosis Medications and Allergies Home Medications Medication Instructions Recorded Confirmed Type Acetaminophen Tab [Tylenol Tab] 1,000 mg PO Q4H 05/10/23 05/10/23 History Ibuprofen [Motrin Ib] 400 mg PO BID PRN 05/10/23 05/10/23 History Kratom 500mg Capsules 2,000 mg PO TID 05/10/23 05/10/23 History Allergies Allergy/AdvReac Type Severity Reaction Status Date / Time No Known Allergies Allergy Verified 05/10/23 13:35 Physical Exam Vitals: Vital Signs Temp Pulse Resp BP Pulse Ox 05/10/23 17:30 98.8 F 98 18 134/78 100 05/10/23 17:20 97.8 F 92 16 114/71 100 05/10/23 12:20 103 H 16 100 05/10/23 12:09 98.6 F 122 H 18 126/73 100 Intake and Output 05/10/23 05/10/23 05/10/23 06:59 14:59 22:59 Intake Total 0 Balance 0 Intake: Blood Product 0 Unit 0 Other: Weight 65.771 kg GENERAL: The patient is alert and oriented x3, not in any acute distress. Well developed, well nourished. HEENT: Pupils are round and equally reacting to light. EOMI. No scleral icterus. No conjunctival pallor. Normocephalic, atraumatic. No pharyngeal erythema. No thyromegaly. CARDIOVASCULAR: S1 and S2 present. No murmurs, rubs, or gallops. PULMONARY: Chest is clear to auscultation, no wheezing , no crackles. ABDOMEN: Soft, nontender, nondistended, normoactive bowel sounds. No palpable organomegaly. MUSCULOSKELETAL: No joint swelling or deformity. EXTREMITIES: No cyanosis, clubbing, or pedal edema. NEUROLOGICAL: Gross neurological examination did not reveal any focal deficits. SKIN: No rashes. no petechiae. Results CBC & Chem 7: 05/10/23 12:34 05/10/23 12:34 Labs: Abnormal Lab Results - Last 24 Hours (Table) 05/10/23 05/10/23 05/10/23 Range/Units 12:32 12:34 12:34 RBC 2.98 L (3.80-5.40) m/uL Hgb 4.7 L* (11.4-16.0) gm/dL Hct 19.0 L* (34.0-46.0) % MCV 63.5 L (80.0-100.0) fL MCH 15.8 L (25.0-35.0) pg MCHC 24.8 L (31.0-37.0) g/dL RDW 20.0 H (11.5-15.5) % APTT 21.6 L (22.0-30.0) sec D-Dimer 1.05 H (<0.60) mg/L FEU Carbon Dioxide (22-30) mmol/L Creatinine (0.52-1.04) mg/dL Glucose (74-99) mg/dL Crossmatch See Detail 05/10/23 Range/Units 12:34 RBC (3.80-5.40) m/uL Hgb (11.4-16.0) gm/dL Hct (34.0-46.0) % MCV (80.0-100.0) fL MCH (25.0-35.0) pg MCHC (31.0-37.0) g/dL RDW (11.5-15.5) % APTT (22.0-30.0) sec D-Dimer (<0.60) mg/L FEU Carbon Dioxide 20 L (22-30) mmol/L Creatinine 0.45 L (0.52-1.04) mg/dL Glucose 127 H (74-99) mg/dL Crossmatch Assessment and Plan Assessment: Syncope twice thought secondary to her severe anemia Severe anemia suspected acute blood loss anemia. Rule out gastric ulcer disease, versus other Nicotine dependence None adherence to therapy History of gastric ulcer disease substance abuse with kratom History of endometriosis status post hysterectomy Depression, not an active issue Chronic back pain status post back surgery 3.5 cm popliteal cyst on the right leg., Incidental finding Plan: Continue with IV Protonix Continue with normal saline Avoid NSAIDs and blood thinners, avoid antiplatelet therapies Patient was discouraged from using kratom Labs and medication were reviewed.. Continue same treatment. Continue with symptomatic treatment. Resume home medication. Monitor labs and vitals. DVT and GI prophylaxis. Further recommendations as per clinical course of the patient DVT prophylaxis: no Subcutaneous heparin, okay to SCD GI Prophylaxis: Ppi PT/OT: Pending Prognosis is guarded
[2023-05-10 22:59] VITALS: TEMP 98.7
[2023-05-10 22:59] LABS: Anisocytosis Moderate; Basophils # (A) 0.1 k/uL (0-0.2); Basophils % (A) 1 %; Eosinophils # (A) 0.3 k/uL (0-0.7); Eosinophils % (A) 5 %; HCT 21.3 % (34.0-46.0); Hypochromasia Marked; Lymphocytes # (A) 1.7 k/uL (1.0-4.8); Lymphocytes % (A) 30 %; MCH 19.6 pg (25.0-35.0); MCHC 28.8 g/dL (31.0-37.0); MCV 67.9 fL (80.0-100.0); Mean Platelet Volume 7.6; Microcytosis Marked; Monocytes # (A) 0.3 k/uL (0-1.0); Monocytes % (A) 6 %; Neutrophils # (A) 3.2 k/uL (1.3-7.7); Neutrophils % (A) 55 %; Platelet Count 299 k/uL (150-450); Poikilocytosis Marked; RBC 3.13 m/uL (3.80-5.40); RDW 23.4 % (11.5-15.5); WBC 5.8 k/uL (3.8-10.6)
[2023-05-10 23:58] LABS: HGB 6.1 gm/dL (11.4-16.0)
[2023-05-11 02:01] VITALS: RESP 18
[2023-05-11] MEDS: SODIUM CHLORIDE 0.9% 1,000 ML IV SCH (02:32)
[2023-05-11 03:31] VITALS: BP 115/72; PULSE 72
--- NOTE | 2023-05-11 06:01 | P.DS ---
Providers Date of admission: 05/10/23 13:52 Attending physician: Akhil Lopez MD Consults: 05/10/23 13:52 Consult Physician Urgent Consulting Provider: Toshia Atkinson Consult Reason/Comments: Anemia and syncope with history of gastric ulcer Do you want consulting provider notified?: Yes Primary care physician: Ángela Mora [facility] Course: please note pt was not discharged but she left against medical advise pt was adamant to leave AMA , despite extensive discussion with the pt about the risks of leaving AMA from different staff members including physician's. Patient understands the risks and she is said them back to me including risk of , organ dysfunction and other risks and complications. Patient has capacity to make medical decision Please refer to H&P for more details Plan - Discharge Summary New Discharge Prescriptions: No Action Ibuprofen [Motrin Ib] 400 mg PO BID PRN PRN Reason: Pain Acetaminophen Tab [Tylenol Tab] 1,000 mg PO Q4H Kratom 500mg Capsules 2,000 mg PO TID Discharge Medication List Acetaminophen Tab [Tylenol Tab] 1,000 mg PO Q4H 05/10/23 [History] Ibuprofen [Motrin Ib] 400 mg PO BID PRN 05/10/23 [History] Kratom 500mg Capsules 2,000 mg PO TID 05/10/23 [History] Follow up Appointment(s)/Referral(s): Ángela Mora MD [Primary Care Provider] - 1-2 days Discharge Disposition: LEFT AGAINST MEDICAL ADVICE
== END 2023-05-11 03:35 | disposition left against medical advice (07) | DRG 663 ==
LOC: EC 12:03 → 3SCARD 13:52
PROVIDERS: ADMIT Internal Medicine; ATTEND Internal Medicine
DX: D62 Acute posthemorrhagic anemia (principal); R55 Syncope and collapse; Z53.29 Procedure and treatment not carried out because of patient's decision for other reasons; E86.1 Hypovolemia; G89.29 Other chronic pain; M54.9 Dorsalgia, unspecified; M71.21 Synovial cyst of popliteal space [Baker], right knee; F17.210 Nicotine dependence, cigarettes, uncomplicated; Z71.6 Tobacco abuse counseling; F32.A Depression, unspecified; Z90.710 Acquired absence of both cervix and uterus; Z87.11 Personal history of peptic ulcer disease; Z98.1 Arthrodesis status
CPT/HCPCS: 36415; 36430; 71046; 80053; 83735; 84484; 85025; 85379; 85610; 85730; 86850; 86900; 86901; 86920; 93005; 96374; 99291

== ENCOUNTER 2023-06-13 21:03 | Emergency (ER) | payer OTHER ==
[2023-06-13 22:18] VITALS: RESP 18
[2023-06-13] MEDS ORDERED: SODIUM CHLORIDE 0.9% 1,000 ML IV STA (22:20)
[2023-06-13 22:33] LABS: Anisocytosis Moderate; Basophils # (A) 0.1 k/uL (0-0.2); Basophils % (A) 2 %; Eosinophils # (A) 0.6 k/uL (0-0.7); Eosinophils % (A) 7 %; HCT 31.5 % (34.0-46.0); Hypochromasia Marked; Lymphocytes # (A) 1.9 k/uL (1.0-4.8); Lymphocytes % (A) 22 %; MCH 22.1 pg (25.0-35.0); MCHC 28.9 g/dL (31.0-37.0); Mean Platelet Volume 8.1; Microcytosis Moderate; Monocytes # (A) 0.4 k/uL (0-1.0); Monocytes % (A) 4 %; Neutrophils # (A) 5.3 k/uL (1.3-7.7); Neutrophils % (A) 63 %; Platelet Count 191 k/uL (150-450); Poikilocytosis Slight; RBC 4.11 m/uL (3.80-5.40); RDW 22.2 % (11.5-15.5); WBC 8.5 k/uL (3.8-10.6)
[2023-06-13 22:40] LABS: ALT 15 U/L (4-34); AST 21 U/L (14-36); African American GFR (CKD) >90 (>60 ml/min/1.73 sqM); Albumin 4.5 g/dL (3.5-5.0); Alkaline Phosphatase 78 U/L (38-126); Amylase 49 U/L (30-110); Anion Gap 9 mmol/L; Blood Urea Nitrogen 21 mg/dL (7-17); Calcium 9.1 mg/dL (8.4-10.2); Carbon Dioxide 25 mmol/L (22-30); Chloride 106 mmol/L (98-107); Glucose 94 mg/dL (74-99); Lipase 49 U/L (23-300); Non-African American GFR(CKD) >90 (>60 ml/min/1.73 sqM); Potassium 4.1 mmol/L (3.5-5.1); Sodium 140 mmol/L (137-145); Total Bilirubin 0.3 mg/dL (0.2-1.3); Total Protein 7.5 g/dL (6.3-8.2)
[2023-06-13 22:42] LABS: INR 0.9 (<1.2); Partial Thromboplastin Time 24.2 sec (22.0-30.0)
[2023-06-13 22:43] LABS: HGB 9.1 gm/dL (11.4-16.0)
[2023-06-13 22:44] LABS: MCV 76.7 fL (80.0-100.0)
[2023-06-13 22:56] LABS: Amorphous Sediment,Urine Occasional /hpf; Appearance,Urine Cloudy (Clear); Bacteria,Urine Many /hpf; Bilirubin,Urine Negative (Negative); Blood,Urine Negative (Negative); Color,Urine Yellow; Glucose,Urine (UA) Negative (Negative); Hyaline Casts,Urine 6 /lpf (0-2); Ketones,Urine Negative (Negative); Leukocyte Esterase,Urine Small (Negative); Mucus,Urine Moderate /hpf; Nitrite,Urine Positive (Negative); Protein,Urine Trace (Negative); RBC,Urine 3 /hpf (0-5); Specific Gravity,Urine 1.037 (1.001-1.035); Squamous Epithelial Cell,Urine 11 /hpf (0-4); Urobilinogen,Urine <2.0 mg/dL (<2.0); WBC,Urine 28 /hpf (0-5)
--- NOTE | 2023-06-13 23:30 | ED ---
General Adult HPI - General Chief complaint: Recheck/Abnormal Lab/Rx Stated complaint: syncope Time Seen by Provider: 06/13/23 21:44 Source: patient Mode of arrival: ambulatory Limitations: no limitations - History of Present Illness Initial comments: 38-year-old female with a past medical history significant for gastric ulcer presenting to the ED with a chief complaint of fatigue/near syncope. Patient notes that she has had intermittent episodes of fatigue/near syncope for the past few months. States that she was seen here previously and was found to be very anemic and found to have a bleeding ulcer at that time. Patient notes that she is having the similar symptoms and thinks that she might be anemic again prompting presentation to the ED for further evaluation. No chest pain or shortness of breath. Patient does complain of some hematuria when she holds in her urine however no dysuria, frequency, urgency. No other complaints. - Related Data Home Medications Medication Instructions Recorded Confirmed Acetaminophen Tab [Tylenol Tab] 1,000 mg PO Q4H 05/10/23 06/13/23 Ibuprofen [Motrin Ib] 400 mg PO BID PRN 05/10/23 06/13/23 Kratom 500mg Capsules 2,000 mg PO TID 05/10/23 06/13/23 Allergies Allergy/AdvReac Type Severity Reaction Status Date / Time No Known Allergies Allergy Verified 06/13/23 22:59 Review of Systems ROS Statement: Those systems with pertinent positive or pertinent negative responses have been documented in the HPI. ROS Other: All systems not noted in ROS Statement are negative. Past Medical History Additional Past Medical History / Comment(s): endometriosis History of Any Multi-Drug Resistant Organisms: None Reported Past Surgical History: Back Surgery, Hysterectomy Additional Past Surgical History / Comment(s): spinal fusion Past Anesthesia/Blood Transfusion Reactions: No Reported Reaction Past Psychological History: Depression Smoking Status: Current every day smoker Past Alcohol Use History: None Reported Past Drug Use History: None Reported - Past Family History Father Family Medical History: No Reported History Additional Family Medical History / Comment(s): Father is healthy Mother Additional Family Medical History / Comment(s): Endometriosis General Exam Limitations: no limitations General appearance: alert, in no apparent distress Eye exam: Present: normal appearance Neck exam: Present: normal inspection Respiratory exam: Present: normal lung sounds bilaterally Cardiovascular Exam: Present: normal rhythm, tachycardia GI/Abdominal exam: Present: soft Back exam: Present: normal inspection Neurological exam: Present: alert, oriented X3 Skin exam: Present: warm, dry Course Vital Signs 06/13/23 06/13/23 21:10 21:58 Temperature 97.8 F Pulse Rate 104 H 112 H Respiratory 20 18 Rate Blood Pressure 155/89 137/88 O2 Sat by Pulse 100 100 Oximetry Medical Decision Making - Medical Decision Making Was pt. sent in by a medical professional or institution (, PA, SERVICE DISPATCHER, urgent care, hospital, or assisted...) When possible be specific @ -No Did you speak to anyone other than the patient for history (EMS, parent, family, police, friend...)? What history was obtained from this source @ -No Did you review nursing and triage notes (agree or disagree)? Why? @ -I reviewed and agree with nursing and triage notes Were old charts reviewed (outside hosp., previous admission, EMS record, old EKG, old radiological studies, urgent care reports/EKG's, assisted records)? Report findings @ -No old charts were reviewed Differential Diagnosis (chest pain, altered mental status, abdominal pain women, abdominal pain men, vaginal bleeding, weakness, fever, dyspnea, syncope, headache, dizziness, GI bleed, back pain, seizure, CVA, palpatations, mental health, musculoskeletal)? @ -Differential Syncope: Valvular disease, hypertrophic cardiomyopathy, pulmonary embolism, tamponade, tachycardia, bradycardia, MO, hypovolemia, hemorrhage, dissection, anemia, intracranial hemorrhage, seizure, hypoglycemia, carbon monoxide poisoning, this is not meant to be an all-inclusive list. EKG interpreted by me (3pts min.). @ -Interpreted by me. EKG shows a sinus rhythm at [address] or T wave changes. MI 180, QRS 85, QT/QTc 349/403. X-rays interpreted by me (1pt min.). @ -None CT interpreted by me (1pt min.). @ -None done U/S interpreted by me (1pt. min.). @ -None done What testing was considered but not performed or refused? (CT, X-rays, U/S, labs)? Why? @ -None What meds were considered but not given or refused? Why? @ -None Did you discuss the management of the patient with other professionals (professionals i.e. , PA, SERVICE DISPATCHER, lab, RT, psych nurse, social media analyst, dry pan charger, teacher, sports development officer, bilingual case manager)? Give summary @ -No Was smoking cessation discussed for >3mins.? @ -No Was critical care preformed (if so, how long)? @ -No Were there social determinants of health that impacted care today? How? (Homelessness, low income, unemployed, alcoholism, drug addiction, transportation, low edu. Level, literacy, decrease access to med. care, fpc, rehab)? @ -No Was there de-escalation of care discussed even if they declined (Discuss DNR or withdrawal of care, Hospice)? DNR status @ -No What co-morbidities impacted this encounter? (DM, HTN, Smoking, COPD, CAD, Can cer, CVA, ARF, Chemo, Hep., AIDS, mental health diagnosis, sleep apnea, morbid obesity)? @ -None Was patient admitted / discharged? Hospital course, mention meds given and route, prescriptions, significant lab abnormalities, going to OR and other pertinent info. @ -Discharge 38-year-old female presenting to the ED with intermittent episodes of fatigue and near syncope. Laboratory studies reviewed. Labs show a CBC with a hemoglobin of 9.1. Chemistry panel unremarkable. Troponin negative. Urine does not show any significant evidence of infection and does appear contaminated. At this time vital signs stable afebrile. Patient discharged home in stable condition with referral to see cardiology. Discussed return precautions with patient who verbalized agreement. Undiagnosed new problem with uncertain prognosis? @ -No Drug Therapy requiring intensive monitoring for toxicity (Heparin, Nitro, Insulin, Cardizem)? @ -No Were any procedures done? @ -No Diagnosis/symptom? @ -Near syncope Acute, or Chronic, or Acute on Chronic? @ -Acute Uncomplicated (without systemic symptoms) or Complicated (systemic symptoms)? @ -Uncomplicated without Side effects of treatment? @ -No Exacerbation, Progression, or Severe Exacerbation? @ -No Poses a threat to life or bodily function? How? (Chest pain, USA, MO, pneumonia, PE, COPD, DKA, ARF, appy, cholecystitis, CVA, Diverticulitis, Homicidal, Suicidal, threat to staff... and all critical care pts) @ -No - Lab Data Result diagrams: 06/13/23 22:05 06/13/23 22:05 Lab Results 06/13/23 06/13/23 06/13/23 Range/Units 22:05 22:05 22:05 WBC 8.5 (3.8-10.6) k/uL RBC 4.11 (3.80-5.40) m/uL Hgb 9.1 L D (11.4-16.0) gm/dL Hct 31.5 L (34.0-46.0) % MCV 76.7 L D (80.0-100.0) fL MCH 22.1 L (25.0-35.0) pg MCHC 28.9 L (31.0-37.0) g/dL RDW 22.2 H (11.5-15.5) % Plt Count 191 (150-450) k/uL MPV 8.1 Neutrophils % 63 % Lymphocytes % 22 % Monocytes % 4 % Eosinophils % 7 % Basophils % 2 % Neutrophils # 5.3 (1.3-7.7) k/uL Lymphocytes # 1.9 (1.0-4.8) k/uL Monocytes # 0.4 (0-1.0) k/uL Eosinophils # 0.6 (0-0.7) k/uL Basophils # 0.1 (0-0.2) k/uL Hypochromasia Marked Poikilocytosis Slight Anisocytosis Moderate Microcytosis Moderate PT 10.0 (10.0-12.5) sec INR 0.9 (<1.2) APTT 24.2 (22.0-30.0) sec Sodium 140 (137-145) mmol/L Potassium 4.1 (3.5-5.1) mmol/L Chloride 106 (98-107) mmol/L Carbon Dioxide 25 (22-30) mmol/L Anion Gap 9 mmol/L BUN 21 H (7-17) mg/dL Creatinine 0.61 (0.52-1.04) mg/dL Est GFR (CKD-EPI)AfAm >90 (>60 ml/min/1.73 sqM) Est GFR (CKD-EPI)NonAf >90 (>60 ml/min/1.73 sqM) Glucose 94 (74-99) mg/dL Calcium 9.1 (8.4-10.2) mg/dL Total Bilirubin 0.3 (0.2-1.3) mg/dL AST 21 (14-36) U/L ALT 15 (4-34) U/L Alkaline Phosphatase 78 (38-126) U/L Troponin I (0.000-0.034) ng/mL Total Protein 7.5 (6.3-8.2) g/dL Albumin 4.5 (3.5-5.0) g/dL Amylase 49 (30-110) U/L Lipase 49 (23-300) U/L Urine Color Urine Appearance (Clear) Urine pH (5.0-8.0) Ur Specific [place] (1.001-1.035) Urine Protein (Negative) Urine Glucose (UA) (Negative) Urine Ketones (Negative) Urine Blood (Negative) Urine Nitrite (Negative) Urine Bilirubin (Negative) Urine Urobilinogen (<2.0) mg/dL Ur Leukocyte Esterase (Negative) Urine RBC (0-5) /hpf Urine WBC (0-5) /hpf Ur Squamous Epith Cells (0-4) /hpf Amorphous Sediment (None) /hpf Urine Bacteria (None) /hpf Hyaline Casts (0-2) /lpf Urine Mucus (None) /hpf Urine HCG, Qual (Not Detectd) Blood Type Blood Type Recheck Bld Type Recheck Status Antibody Screen Spec Expiration Date 06/13/23 06/13/23 06/13/23 Range/Units 22:05 22:05 22:40 WBC (3.8-10.6) k/uL RBC (3.80-5.40) m/uL Hgb (11.4-16.0) gm/dL Hct (34.0-46.0) % MCV (80.0-100.0) fL MCH (25.0-35.0) pg MCHC (31.0-37.0) g/dL RDW (11.5-15.5) % Plt Count (150-450) k/uL MPV Neutrophils % % Lymphocytes % % Monocytes % % Eosinophils % % Basophils % % Neutrophils # (1.3-7.7) k/uL Lymphocytes # (1.0-4.8) k/uL Monocytes # (0-1.0) k/uL Eosinophils # (0-0.7) k/uL Basophils # (0-0.2) k/uL Hypochromasia Poikilocytosis Anisocytosis Microcytosis PT (10.0-12.5) sec INR (<1.2) APTT (22.0-30.0) sec Sodium (137-145) mmol/L Potassium (3.5-5.1) mmol/L Chloride (98-107) mmol/L Carbon Dioxide (22-30) mmol/L Anion Gap mmol/L BUN (7-17) mg/dL Creatinine (0.52-1.04) mg/dL Est GFR (CKD-EPI)AfAm (>60 ml/min/1.73 sqM) Est GFR (CKD-EPI)NonAf (>60 ml/min/1.73 sqM) Glucose (74-99) mg/dL Calcium (8.4-10.2) mg/dL Total Bilirubin (0.2-1.3) mg/dL AST (14-36) U/L ALT (4-34) U/L Alkaline Phosphatase (38-126) U/L Troponin I <0.012 (0.000-0.034) ng/mL Total Protein (6.3-8.2) g/dL Albumin (3.5-5.0) g/dL Amylase (30-110) U/L Lipase (23-300) U/L Urine Color Yellow Urine Appearance Cloudy H (Clear) Urine pH 6.0 (5.0-8.0) Ur Specific [place] 1.037 H (1.001-1.035) Urine Protein Trace H (Negative) Urine Glucose (UA) Negative (Negative) Urine Ketones Negative (Negative) Urine Blood Negative (Negative) Urine Nitrite Positive H (Negative) Urine Bilirubin Negative (Negative) Urine Urobilinogen <2.0 (<2.0) mg/dL Ur Leukocyte Esterase Small H (Negative) Urine RBC 3 (0-5) /hpf Urine WBC 28 H (0-5) /hpf Ur Squamous Epith Cells 11 H (0-4) /hpf Amorphous Sediment Occasional H (None) /hpf Urine Bacteria Many H (None) /hpf Hyaline Casts 6 H (0-2) /lpf Urine Mucus Moderate H (None) /hpf Urine HCG, Qual (Not Detectd) Blood Type O Positive Blood Type Recheck O Pos Bld Type Recheck Status No Antibody Screen NEGATIVE Spec Expiration Date 06/16/2023230406/13/23 Range/Units 22:40 WBC (3.8-10.6) k/uL RBC (3.80-5.40) m/uL Hgb (11.4-16.0) gm/dL Hct (34.0-46.0) % MCV (80.0-100.0) fL MCH (25.0-35.0) pg MCHC (31.0-37.0) g/dL RDW (11.5-15.5) % Plt Count (150-450) k/uL MPV Neutrophils % % Lymphocytes % % Monocytes % % Eosinophils % % Basophils % % Neutrophils # (1.3-7.7) k/uL Lymphocytes # (1.0-4.8) k/uL Monocytes # (0-1.0) k/uL Eosinophils # (0-0.7) k/uL Basophils # (0-0.2) k/uL Hypochromasia Poikilocytosis Anisocytosis Microcytosis PT (10.0-12.5) sec INR (<1.2) APTT (22.0-30.0) sec Sodium (137-145) mmol/L Potassium (3.5-5.1) mmol/L Chloride (98-107) mmol/L Carbon Dioxide (22-30) mmol/L Anion Gap mmol/L BUN (7-17) mg/dL Creatinine (0.52-1.04) mg/dL Est GFR (CKD-EPI)AfAm (>60 ml/min/1.73 sqM) Est GFR (CKD-EPI)NonAf (>60 ml/min/1.73 sqM) Glucose (74-99) mg/dL Calcium (8.4-10.2) mg/dL Total Bilirubin (0.2-1.3) mg/dL AST (14-36) U/L ALT (4-34) U/L Alkaline Phosphatase (38-126) U/L Troponin I (0.000-0.034) ng/mL Total Protein (6.3-8.2) g/dL Albumin (3.5-5.0) g/dL Amylase (30-110) U/L Lipase (23-300) U/L Urine Color Urine Appearance (Clear) Urine pH (5.0-8.0) Ur Specific [place] (1.001-1.035) Urine Protein (Negative) Urine Glucose (UA) (Negative) Urine Ketones (Negative) Urine Blood (Negative) Urine Nitrite (Negative) Urine Bilirubin (Negative) Urine Urobilinogen (<2.0) mg/dL Ur Leukocyte Esterase (Negative) Urine RBC (0-5) /hpf Urine WBC (0-5) /hpf Ur Squamous Epith Cells (0-4) /hpf Amorphous Sediment (None) /hpf Urine Bacteria (None) /hpf Hyaline Casts (0-2) /lpf Urine Mucus (None) /hpf Urine HCG, Qual Not Detected (Not Detectd) Blood Type Blood Type Recheck Bld Type Recheck Status Antibody Screen Spec Expiration Date Disposition Clinical Impression: Near syncope Disposition: HOME SELF-CARE Condition: Good Instructions (If sedation given, give patient instructions): Near Syncope (ED) Additional Instructions: Please return to the Emergency Department if symptoms worsen or any other concerns. Please follow-up with your PCP and/or cardiology. Is patient prescribed a controlled substance at d/c from ED?: No Referrals: Ángela Mora MD [Primary Care Provider] - 1-2 days Juventino Holcomb MD [STAFF PHYSICIAN] - 1-2 days Time of Disposition: 23:37
[2023-06-14 00:13] VITALS: BP 125/81; PULSE 100; TEMP 98
== END 2023-06-14 00:01 | disposition home or self-care (01) ==
LOC: EC 21:03
DX: R55 Syncope and collapse (principal); I25.2 Old myocardial infarction; F32.A Depression, unspecified; F17.200 Nicotine dependence, unspecified, uncomplicated; Z79.899 Other long term (current) drug therapy
CPT/HCPCS: 36415; 80053; 81001; 81025; 82150; 83690; 84484; 85025; 85610; 85730; 86850; 86900; 86901; 93005; 96360; 99284